=== PATIENT | female | born 1965 | race Caucasian/White ===

== ENCOUNTER → 2016-10-22 | Outpatient (CLI) | payer BC ==
--- NOTE | 2016-10-22 21:29 | REP ---
Clinical: Bronchitis . Comparison: 12/08/2014 . Technique: PA and lateral. Findings: The mediastinum and cardiac silhouette are normal. The lung velasquez are clear and without acute consolidation, effusion, or pneumothorax. The skeletal structures are intact and normal. Impression: 1. No acute cardiopulmonary process. Signed by Maximo Haas MD 10/22/2016 09:20 P
== END ==
LOC: M CLY 15:33
PROVIDERS: ATTEND Family Medicine
DX: J40 Bronchitis, not specified as acute or chronic (principal)

== ENCOUNTER 2016-11-12 09:36 | Outpatient (RCR) | payer BC | END 2016-11-18 | LOC: M PT 09:36 | PROVIDERS: ATTEND Orthopaedic Surgery | DX: Z51.89 Encounter for other specified aftercare (principal); M65.812 Other synovitis and tenosynovitis, left shoulder ==

== ENCOUNTER 2016-12-12 11:44 | Outpatient (RCR) | payer BC | END 2016-12-16 | LOC: M PT 11:44 | PROVIDERS: ATTEND Orthopaedic Surgery | DX: Z51.89 Encounter for other specified aftercare (principal); M65.812 Other synovitis and tenosynovitis, left shoulder ==

== ENCOUNTER 2017-01-08 09:45 | Outpatient (RCR) | payer BC | END 2017-01-16 | LOC: M PT 09:45 | PROVIDERS: ATTEND Orthopaedic Surgery | DX: Z51.89 Encounter for other specified aftercare (principal); M65.812 Other synovitis and tenosynovitis, left shoulder ==

== ENCOUNTER → 2017-02-12 | Outpatient (CLI) | payer BC ==
[2017-02-12 10:12] LABS: ALBUMIN 3.6 GM/DL (3.2-5.2); ALBUMIN/GLOBULIN RATIO 1.03 (1.00-1.93); ALKALINE PHOSPHATASE 85 U/L (45-117); ALT/SGPT 35 U/L (12-78); ANION GAP 8 MEQ/L (8-16); AST/SGOT 22 U/L (15-37); BILIRUBIN,TOTAL 0.4 MG/DL (0.2-1.0); BLOOD UREA NITROGEN 14 MG/DL (7-18); CALCIUM LEVEL 8.6 MG/DL (8.5-10.1); CARBON DIOXIDE LEVEL 28 MEQ/L (21-32); CHLORIDE LEVEL 107 MEQ/L (98-107); CHOLESTEROL LEVEL 203 MG/DL (<200); CREATININE FOR GFR 0.75 MG/DL (0.55-1.02); GLOMERULAR FILTRATION RATE > 60.0 (>51); GLUCOSE, FASTING 90 MG/DL (70-105); POTASSIUM SERUM 4.4 MEQ/L (3.5-5.1); SODIUM LEVEL 143 MEQ/L (136-145); TOTAL PROTEIN 7.1 GM/DL (6.4-8.2); TRIGLYCERIDES LEVEL 70 MG/DL (<150)
[2017-02-12 10:32] LABS: MEAN CORPUSCULAR HEMOGLOBIN 30.5 pg (27.0-33.0); MEAN CORPUSCULAR HGB CONC 34.1 g/dl (32.0-36.5); MEAN CORPUSCULAR VOLUME 89.4 fl (80.0-96.0); PLATELET COUNT, AUTOMATED 258 k/mm3 (150-450); RED CELL DISTRIBUTION WIDTH 13.4 % (11.5-14.5); WHITE BLOOD COUNT 5.5 K/mm3 (4.0-10.0)
[2017-02-12 10:33] LABS: BASO % 0.6 % (0.0-1.0); EOS # 0.1 K/mm3 (0.0-0.50); EOS % 1.1 % (0.0-3.0); LARGE UNSTAINED CELL # 0.1 K/mm3 (0.0-0.4); LARGE UNSTAINED CELL % 1.1 % (0.0-4.0); LYMPH # 1.3 K/mm3 (1.5-4.5); LYMPH % 24.3 % (24.0-44.0); MONO # 0.3 K/mm3 (0.0-0.8); MONO % 5.4 % (0.0-5.0); NEUTROPHILS # 3.7 K/mm3 (1.8-7.7); NEUTROPHILS % 67.5 % (36.0-66.0)
== END ==
LOC: M LAB 09:12
PROVIDERS: ATTEND Internal Medicine Infectious Disease
DX: R76.11 Nonspecific reaction to tuberculin skin test without active tuberculosis (principal); E78.00 Pure hypercholesterolemia, unspecified

== ENCOUNTER → 2017-04-17 | Outpatient (RCR) | payer BC | END | disposition home or self-care (01) | LOC: M PT 04-02 13:19 | PROVIDERS: ATTEND Physician Assistant | DX: Z51.89 Encounter for other specified aftercare (principal); M75.82 Other shoulder lesions, left shoulder ==

== ENCOUNTER → 2017-08-17 | Outpatient (REF) | payer BC | LOC: M SFHCLERA 09:22 | PROVIDERS: ATTEND Dermatology | DX: D49.2 Neoplasm of unspecified behavior of bone, soft tissue, and skin (principal) ==

== ENCOUNTER → 2018-02-09 | Outpatient (REF) | payer BC ==
[2018-02-11 14:13] LABS: HPV HYBRID CAPTURE II Negative (Negative)
== END ==
LOC: M LAB REF 18:03
DX: Z12.4 Encounter for screening for malignant neoplasm of cervix (principal)
CPT/HCPCS: G0123

== ENCOUNTER 2018-06-23 12:46 | Emergency (ER) | payer BC ==
[2018-06-23 13:23] LABS: BASO % 0.3 % (0.0-1.0); EOS # 0.1 10^3/uL (0.0-0.50); EOS % 0.7 % (0.0-3.0); HEMOGLOBIN 13.6 g/dl (12.0-15.5); IMMATURE GRANULOCYTE % 0.4 % (0-3.0); LYMPH % 29.1 % (24.0-44.0); MEAN CORPUSCULAR HGB CONC 31.6 g/dl (32.0-36.5); MEAN CORPUSCULAR VOLUME 88.5 fl (80.0-96.0); MONO # 0.4 10^3/uL (0.0-0.8); MONO % 6.3 % (0.0-5.0); NEUTROPHILS # 4.2 10^3/uL (1.8-7.7); NEUTROPHILS % 63.2 % (36.0-66.0); PLATELET COUNT, AUTOMATED 264 10^3/uL (150-450); RED BLOOD COUNT 4.86 10^6/uL (4.00-5.40); RED CELL DISTRIBUTION WIDTH 13.8 % (11.5-14.5); WHITE BLOOD COUNT 6.7 10^3/uL (4.0-10.0)
[2018-06-23 13:35] LABS: INR 0.92; PROTHROMBIN TIME 12.4 SECONDS (12.1-14.4)
[2018-06-23 13:57] LABS: ALBUMIN 3.6 GM/DL (3.2-5.2); ALKALINE PHOSPHATASE 85 U/L (45-117); ANION GAP 9 MEQ/L (8-16); AST/SGOT 23 U/L (7-37); BILIRUBIN,DIRECT < 0.1 MG/DL (0.0-0.2); BILIRUBIN,TOTAL 0.2 MG/DL (0.2-1.0); BLOOD UREA NITROGEN 13 MG/DL (7-18); CALCIUM LEVEL 8.9 MG/DL (8.5-10.1); CARBON DIOXIDE LEVEL 28 MEQ/L (21-32); CHLORIDE LEVEL 106 MEQ/L (98-107); CPK CREATINE PHOSPHOKINASE 55 U/L (26-192); CREATININE FOR GFR 0.83 MG/DL (0.55-1.30); GLOMERULAR FILTRATION RATE > 60.0 (>51); GLUCOSE, FASTING 97 MG/DL (70-100); LIPASE 208 U/L (73-393); POTASSIUM SERUM 3.9 MEQ/L (3.5-5.1); SODIUM LEVEL 143 MEQ/L (136-145); TOTAL PROTEIN 7.6 GM/DL (6.4-8.2); TROPONIN I < 0.02 NG/ML (< 0.10)
[2018-06-23 14:07] LABS: ALT/SGPT 36 U/L (12-78); CK-MB VALUE MASS < 1.0 NG/ML (<3.6); MB/CK RELATIVE INDEX 1.81 (< OR =4); NT-PRO BNP 101 PG/ML (<125)
[2018-06-23] MEDS ORDERED: ISOVUE-370 76% 100ML VIAL (Q9967) As Ordered (14:41)
[2018-06-23] MEDS: ASPIRIN 81 MG CHEW TABLET PO (14:53)
[2018-06-23] MEDS: NITROGLYCERIN 0.4 MG SUBL TABLET SL (14:54)
[2018-06-23 19:15] LABS: CK-MB VALUE MASS < 1.0 NG/ML (<3.6); CPK CREATINE PHOSPHOKINASE 51 U/L (26-192); MB/CK RELATIVE INDEX 1.96 (< OR =4); TROPONIN I < 0.02 NG/ML (< 0.10)
== END 2018-06-23 20:32 | disposition home or self-care (01) ==
LOC: M ED 12:46
DX: R07.9 Chest pain, unspecified (principal); R94.31 Abnormal electrocardiogram [ECG] [EKG]; I10 Essential (primary) hypertension; E78.5 Hyperlipidemia, unspecified; F41.9 Anxiety disorder, unspecified; Z82.49 Family history of ischemic heart disease and other diseases of the circulatory system; Z91.048 Other nonmedicinal substance allergy status; Z91.011 Allergy to milk products
CPT/HCPCS: Q9967

== ENCOUNTER → 2018-07-16 | Outpatient (CLI) | payer BC ==
[2018-07-16 10:28] LABS: ANION GAP 6 MEQ/L (8-16); BLOOD UREA NITROGEN 25 MG/DL (7-18); CALCIUM LEVEL 9.3 MG/DL (8.5-10.1); CARBON DIOXIDE LEVEL 30 MEQ/L (21-32); CHLORIDE LEVEL 106 MEQ/L (98-107); CHOLESTEROL LEVEL 216 MG/DL (<200); CHOLESTEROL RISK RATIO 4.075 (<5); CREATININE FOR GFR 0.82 MG/DL (0.55-1.30); GLOMERULAR FILTRATION RATE > 60.0 (>51); GLUCOSE, FASTING 96 MG/DL (70-100); HDL CHOLESTEROL 53 MG/DL (>40); LDL CHOLESTEROL 148 MG/DL (<100); NON-HDL-C 163 MG/DL; POTASSIUM SERUM 4.8 MEQ/L (3.5-5.1); SODIUM LEVEL 142 MEQ/L (136-145); TRIGLYCERIDES LEVEL 73 MG/DL (<150)
== END ==
LOC: M LAB 09:12
DX: I10 Essential (primary) hypertension (principal)
CPT/HCPCS: 80061

== ENCOUNTER → 2018-07-16 | Outpatient (CLI) | payer BC ==
[2018-07-16 09:48] LABS: HEMATOCRIT 43.3 % (36.0-47.0); HEMOGLOBIN 14.1 g/dl (12.0-15.5); MEAN CORPUSCULAR HEMOGLOBIN 28.6 pg (27.0-33.0); MEAN CORPUSCULAR HGB CONC 32.6 g/dl (32.0-36.5); MEAN CORPUSCULAR VOLUME 87.8 fl (80.0-96.0); PLATELET COUNT, AUTOMATED 275 10^3/uL (150-450); RED BLOOD COUNT 4.93 10^6/uL (4.00-5.40); RED CELL DISTRIBUTION WIDTH 13.4 % (11.5-14.5); WHITE BLOOD COUNT 5.3 10^3/uL (4.0-10.0)
[2018-07-16 10:25] LABS: ALBUMIN/GLOBULIN RATIO 1.11 (1.00-1.93); ALKALINE PHOSPHATASE 83 U/L (45-117); ALT/SGPT 34 U/L (12-78); ANION GAP 8 MEQ/L (8-16); AST/SGOT 19 U/L (7-37); BILIRUBIN,TOTAL 0.3 MG/DL (0.2-1.0); BLOOD UREA NITROGEN 23 MG/DL (7-18); CALCIUM LEVEL 9.5 MG/DL (8.5-10.1); CARBON DIOXIDE LEVEL 29 MEQ/L (21-32); CHLORIDE LEVEL 106 MEQ/L (98-107); CREATININE FOR GFR 0.83 MG/DL (0.55-1.30); GLOMERULAR FILTRATION RATE > 60.0 (>51); GLUCOSE, FASTING 91 MG/DL (70-100); POTASSIUM SERUM 4.8 MEQ/L (3.5-5.1); SODIUM LEVEL 143 MEQ/L (136-145); TOTAL PROTEIN 7.6 GM/DL (6.4-8.2)
== END ==
LOC: M LAB 09:04
DX: R19.5 Other fecal abnormalities (principal); I10 Essential (primary) hypertension
CPT/HCPCS: 80053

== ENCOUNTER → 2019-12-01 | Outpatient (REF) | payer BC | LOC: M SFHCCLAY 16:04 | PROVIDERS: ATTEND Nurse Practitioner Family | DX: J02.9 Acute pharyngitis, unspecified (principal) ==

== ENCOUNTER → 2019-12-09 | Outpatient (CLI) | payer BC ==
--- NOTE | 2019-12-09 15:50 | REP ---
Clinical: Left lower extremity numbness . Technique: AP, lateral, bilateral oblique, and coned-down views. Findings: Alignment and lordosis is maintained. There is no evidence for acute fracture / compression injury or subluxation. Endplate sclerosis with disc space narrowing and anterior osteophyte formation at L1-2 noted along with mild endplate sclerosis and disc space narrowing at L5-S1. Impression: Mild degenerative changes at L1-2 and L5-S1. Electronically Signed by Maximo Haas MD 12/09/2019 03:42 P
--- NOTE | 2019-12-09 15:51 | REP ---
Clinical: Left hip pain. Left lower extremity numbness. Technique: Neutral and frog lateral views of the left hip. Findings: Osseous structures, joint spaces, and surrounding soft tissues are essentially normal for age. No overt osteoarthritic findings are appreciated. Surrounding soft tissues are unremarkable. Impression: Normal left hip radiographs. Electronically Signed by Maximo Haas MD 12/09/2019 03:43 P
== END ==
LOC: M RAD 14:46
PROVIDERS: ATTEND Nurse Practitioner Family
DX: M51.36 Other intervertebral disc degeneration, lumbar region (principal); M51.37 Other intervertebral disc degeneration, lumbosacral region; R20.0 Anesthesia of skin

== ENCOUNTER → 2019-12-12 | Outpatient (CLI) | payer BC ==
[2019-12-12 10:32] LABS: ALBUMIN 3.8 GM/DL (3.2-5.2); ALT/SGPT 50 U/L (12-78); BILIRUBIN,TOTAL 0.3 MG/DL (0.2-1.0); BLOOD UREA NITROGEN 13 MG/DL (7-18); CALCIUM LEVEL 9.2 MG/DL (8.5-10.1); CARBON DIOXIDE LEVEL 30 MEQ/L (21-32); CHLORIDE LEVEL 107 MEQ/L (98-107); CHOLESTEROL LEVEL 239 MG/DL (<200); CHOLESTEROL RISK RATIO 5.195 (<5); CREATININE FOR GFR 0.74 MG/DL (0.55-1.30); GLOMERULAR FILTRATION RATE > 60.0 (>51); GLUCOSE, FASTING 96 MG/DL (70-100); HDL CHOLESTEROL 46 MG/DL (>40); LDL CHOLESTEROL 149 MG/DL (<100); NON-HDL-C 193 MG/DL; POTASSIUM SERUM 4.4 MEQ/L (3.5-5.1); SODIUM LEVEL 141 MEQ/L (136-145); TOTAL PROTEIN 7.2 GM/DL (6.4-8.2); TRIGLYCERIDES LEVEL 221 MG/DL (<150); VITAMIN B12 LEVEL 494 PG/ML (247-911)
[2019-12-16 14:09] LABS: VITAMIN B1 LEVEL WHOLE BLOOD 154.6 nmol/L (66.5-200.0)
== END ==
LOC: M LAB 08:35
PROVIDERS: ATTEND Nurse Practitioner Family
DX: R20.0 Anesthesia of skin (principal)

== ENCOUNTER → 2020-01-17 | Outpatient (REF) | payer BC | LOC: M LAB REF 17:17 | PROVIDERS: ATTEND Dermatology | DX: D23.5 Other benign neoplasm of skin of trunk (principal) ==

== ENCOUNTER → 2020-05-07 | Outpatient (CLI) | payer SELFPAY | LOC: M LABSMTC 09:35 | PROVIDERS: ATTEND Pediatrics | DX: Z20.828 Contact with and (suspected) exposure to other viral communicable diseases (principal); Z11.59 Encounter for screening for other viral diseases ==

== ENCOUNTER → 2020-05-15 | Outpatient (REF) | payer BC ==
[2020-06-11 09:14] LABS: HEMATOCRIT 44.1 % (36.0-47.0); HEMOGLOBIN 13.8 g/dl (12.0-15.5); MEAN CORPUSCULAR HEMOGLOBIN 28.1 pg (27.0-33.0); MEAN CORPUSCULAR HGB CONC 31.3 g/dl (32.0-36.5); MEAN CORPUSCULAR VOLUME 89.8 fl (80.0-96.0); PLATELET COUNT, AUTOMATED 304 10^3/uL (150-450); RED BLOOD COUNT 4.91 10^6/uL (4.00-5.40); WHITE BLOOD COUNT 6.8 10^3/uL (4.0-10.0)
[2020-06-21 07:01] LABS: BLOOD UREA NITROGEN 15 MG/DL (7-18); CALCIUM LEVEL 9.2 MG/DL (8.5-10.1); CARBON DIOXIDE LEVEL 32 MEQ/L (21-32); CHLORIDE LEVEL 105 MEQ/L (98-107); GLOMERULAR FILTRATION RATE > 60.0 (>51); GLUCOSE, FASTING 92 MG/DL (70-100); SODIUM LEVEL 143 MEQ/L (136-145)
== END ==
LOC: M SFHCCLAY 08:01
PROVIDERS: ATTEND Family Medicine
DX: K52.9 Noninfective gastroenteritis and colitis, unspecified (principal)

== ENCOUNTER → 2020-08-09 | Outpatient (CLI) | payer BC | LOC: M LABSMTC 11:39 | PROVIDERS: ATTEND Pediatrics | DX: Z11.59 Encounter for screening for other viral diseases (principal) ==

== ENCOUNTER → 2020-10-29 | Outpatient (CLI) | payer BC ==
[2020-10-29 12:14] LABS: HEMOGLOBIN A1c 5.4 %
== END ==
LOC: M LAB 09:11
DX: R73.09 Other abnormal glucose (principal)

== ENCOUNTER → 2020-11-08 | Outpatient (REF) | LOC: M EMP 09:03 | PROVIDERS: ATTEND Family Medicine | DX: Z20.822 Contact with and (suspected) exposure to COVID-19 (principal) ==

== ENCOUNTER → 2021-01-16 | Outpatient (CLI) | payer BC ==
[~2021-01-16] MED LIST: LISI10TA15; TOPI25TA10; VITA1CHW11 PO
== END ==
LOC: M LABSMTC 09:37
PROVIDERS: ATTEND Anesthesiology
DX: Z01.818 Encounter for other preprocedural examination (principal); Z20.822 Contact with and (suspected) exposure to COVID-19

== ENCOUNTER → 2021-02-08 | Outpatient (CLI) | payer BC ==
[2021-02-08 11:29] LABS: ALBUMIN 3.9 GM/DL (3.2-5.2); ALT/SGPT 56 U/L (12-78); BILIRUBIN,TOTAL 0.3 MG/DL (0.2-1.0); BLOOD UREA NITROGEN 20 MG/DL (7-18); CALCIUM LEVEL 9.4 MG/DL (8.5-10.1); CARBON DIOXIDE LEVEL 32 MEQ/L (21-32); CHLORIDE LEVEL 105 MEQ/L (98-107); GLOMERULAR FILTRATION RATE > 60.0 (>51); GLUCOSE, FASTING 96 MG/DL (70-100); SODIUM LEVEL 141 MEQ/L (136-145); TOTAL PROTEIN 7.5 GM/DL (6.4-8.2)
== END ==
LOC: M LAB 10:21
PROVIDERS: ATTEND Internal Medicine Infectious Disease
DX: R76.11 Nonspecific reaction to tuberculin skin test without active tuberculosis (principal)

== ENCOUNTER 2021-02-18 07:40 | Day surgery (SDC) | payer BC ==
[~2021-02-18] VITALS: Ht 167.6 cm; Wt 107.5 kg
[~2021-02-18 07:40] MED LIST changes: +NS 1,000 ML IV ONE
[2021-02-18] MEDS ORDERED: LIDOCAINE 2% 100MG/5ML SDV (FOR ANES.) As Ordered ONE (07:56)
[2021-02-18] MEDS ORDERED: propofoL 500 MG/50 ML VIAL As Ordered ONE ×3 (07:56→09:03)
[2021-02-18] MEDS ORDERED: ePHEDrine SULFATE 25 MG/5 ML(5MG/ML) SYRINGE As Ordered ONE (08:45)
[2021-02-18] MEDS ORDERED: PHENYLephrine 500MCG 5ML (100MCG/ML) SYRINGE As Ordered ONE (09:01)
--- NOTE | 2021-02-18 09:17 | ROOR ---
Patient Name: Stacia Beatty Procedure Date: 02/18/2021 8:32 AM Date of : 1965 Age: 55 Room: [facility] Gender: Female Note Status: Finalized Procedure: Total Colonoscopy to Cecum + Cold Snare Polypectomy + Hemoclips Indications: Screening for colorectal malignant neoplasm Providers: Regulo Casillas MD Referring MD: Wesley Leal MD Requesting Provider: Medicines: Monitored Anesthesia Care Complications: No immediate complications. Procedure: Pre-Anesthesia Assessment: - The heart rate, respiratory rate, oxygen saturations, blood pressure, adequacy of pulmonary ventilation, and response to care were monitored throughout the procedure. The Colonoscope was introduced through the anus and advanced to the terminal ileum, with identification of the appendiceal orifice and IC valve. The colonoscopy was performed without difficulty. The patient tolerated the procedure well. The quality of the bowel preparation was excellent. Findings: The perianal and digital rectal examinations were normal. Non-bleeding internal hemorrhoids were found during retroflexion. The hemorrhoids were small and Grade I (internal hemorrhoids that do not prolapse). The terminal ileum appeared normal. A medium polyp was found at 25 cm proximal to the anus. The polyp was carpet-like. The polyp was removed with a cold snare. Resection and retrieval were complete. To prevent bleeding after the polypectomy, three hemostatic clips were successfully placed (MR conditional). There was no bleeding at the end of the procedure. Two carpet-like polyps were found in the cecum. The polyps were medium in size. These polyps were removed with a cold snare. Resection and retrieval were complete. To prevent bleeding after the polypectomy, four hemostatic clips were successfully placed (MR conditional). There was no bleeding at the end of the procedure. The exam was otherwise without abnormality on direct and retroflexion views. Impression: - Non-bleeding internal hemorrhoids. - The examined portion of the ileum was normal. - One medium polyp at 25 cm proximal to the anus, removed with a cold snare. Resected and retrieved. Clips (MR conditional) were placed. - Two medium polyps in the cecum, removed with a cold snare. Resected and retrieved. Clips (MR conditional) were placed. - The examination was otherwise normal on direct and retroflexion views. - The exam was otherwise normal to the cecum. Recommendation: - Patient has a contact number available for emergencies. The signs and symptoms of potential delayed complications were discussed with the patient. Return to normal activities tomorrow. Written discharge instructions were provided to the patient. - High fiber diet. - Discharge patient to home. - Continue present medications. - Await pathology results. - Telephone GI clinic for pathology results in 1 week. - Repeat colonoscopy in 3 years for surveillance based on pathology results. - Return to referring physician. - The findings and recommendations were discussed with the patient. Procedure Code(s): --- Professional --- 52359, Colonoscopy, flexible; with removal of tumor(s), polyp(s), or other lesion(s) by snare technique Diagnosis Code(s): --- Professional --- K63.5, Polyp of colon Z12.11, Encounter for screening for malignant neoplasm of colon K64.0, First degree hemorrhoids CPT copyright 2019 [employer]. All rights reserved. The codes documented in this report are preliminary and upon auto battery builder review may be revised to meet current compliance requirements. Regulo Casillas MD Regulo Casillas MD 02/18/2021 9:17:24 AM Electronically signed by Regulo Casillas MD Number of Addenda: 0 Note Initiated On: 02/18/2021 8:32 AM Estimated Blood Loss: Estimated blood loss: none.
[2021-02-18 09:30] VITALS: BP 123/74
== END 2021-02-18 09:39 | disposition home or self-care (01) ==
LOC: M OPP 07:40
PROVIDERS: ATTEND Internal Medicine Gastroenterology
DX: Z12.11 Encounter for screening for malignant neoplasm of colon (principal); K63.5 Polyp of colon; K64.0 First degree hemorrhoids; I71.1 Thoracic aortic aneurysm, ruptured; I10 Essential (primary) hypertension; Z22.7 Latent tuberculosis; Z79.899 Other long term (current) drug therapy; Z91.011 Allergy to milk products; Z91.048 Other nonmedicinal substance allergy status
CPT/HCPCS: 45385; 88305; J2370

== ENCOUNTER → 2021-07-02 | Outpatient (REF) ==
[~2021-07-02] MED LIST changes: -NS 1,000 ML IV ONE
== END ==
LOC: M EMP 08:56
PROVIDERS: ATTEND Family Medicine
DX: Z11.52 Encounter for screening for COVID-19 (principal)

== ENCOUNTER 2021-08-17 09:02 | Emergency (ER) | payer BC ==
[~2021-08-17] VITALS: Ht 170.2 cm; Wt 110.9 kg
--- OUTSIDE RECORDS SUMMARY | 2021-08-17 09:08 | CCD ---
Author Author [facility] Organization [facility] Address Unknown Phone Unavailable Care Team Providers Care Dining Room Maid Name Role Phone Elissa Casillas MD Unavailable Unavailable Elissa Casillas MD Unavailable Unavailable Elissa Casillas MD Unavailable Unavailable Elissa Casillas MD Unavailable Unavailable Elissa Casillas MD Unavailable Unavailable Elissa Casillas MD Unavailable Unavailable Elissa Casillas MD Unavailable Unavailable Elissa Casillas MD Unavailable Unavailable Elissa Casillas MD Unavailable Unavailable Elissa Casillas MD Unavailable Unavailable Elissa Casillas MD Unavailable Unavailable Elissa Casillas MD Unavailable Unavailable Elissa Casillas MD Unavailable Unavailable Elissa Casillas MD Unavailable Unavailable Elissa Casillas MD Unavailable Unavailable Elissa Casillas MD Unavailable Unavailable SonjaElissa morales MD Unavailable Unavailable Sonja, S Regulo CARIAS Unavailable Unavailable Sonja, S Regulo CARIAS Unavailable Unavailable SonjaElissa morales MD Unavailable Unavailable SonjaElissa morales MD Unavailable Unavailable Sonja S Regulo CARIAS Unavailable Unavailable Sonja, S Reuglo CARIAS Unavailable Unavailable Sonja S Regulo CARIAS Unavailable Unavailable Sonja S Regulo CARIAS Unavailable Unavailable Sonja S Regulo CARIAS Unavailable Unavailable Sonja S Regulo CARIAS Unavailable Unavailable SonjaElissa MD Unavailable Unavailable Sonja S Regulo CARIAS Unavailable Unavailable Sonja, S Regulo CARIAS Unavailable Unavailable Sonja S Regulo CARIAS Unavailable Unavailable Sonja, S Regulo CARIAS Unavailable Unavailable SonjaElissa morales MD Unavailable Unavailable Elissa Casillas MD Unavailable Unavailable SonjaElissa morales MD Unavailable Unavailable SonjaElissa morales MD Unavailable Unavailable Elissa Casillas MD Unavailable Unavailable Elissa Casillas MD Unavailable Unavailable Elissa Casillas MD Unavailable Unavailable Elissa Casillas MD Unavailable Unavailable Elissa Casillas MD Unavailable Unavailable Elissa Casillas MD Unavailable Unavailable Elissa Casillas MD Unavailable Unavailable Elissa Casillas MD Unavailable Unavailable Elissa Casillas MD Unavailable Unavailable Elissa Casillas MD Unavailable Unavailable Elissa Casillas MD Unavailable Unavailable Elissa Casillas MD Unavailable Unavailable Elissa Casillas MD Unavailable Unavailable Elissa Casillas MD Unavailable Unavailable Amber MEYERW DPM Unavailable Unavailable Amber MEYER DPM Unavailable Unavailable BETSY R FRANSISCO DPM Unavailable Unavailable BETSY R FRANSISCO DPM Unavailable Unavailable BETSY R FRANSISCO DPM Unavailable Unavailable MAJIVONNE R FRANSISCO DPM Unavailable Unavailable MAJIVONNE, R FRANSISCO DPM Unavailable Unavailable MAJIVONNE, R FRANSISCO DPM Unavailable Unavailable MAJIVONNE, R FRANSISCO DPM Unavailable Unavailable BETSY, R FRANSISCO DPM Unavailable Unavailable BETSY, R FRANSISCO DPM Unavailable Unavailable BETSY, R FRANSISCO DPM Unavailable Unavailable MAJIVONNE, R FRANSISCO DPM Unavailable Unavailable BETSY, R FRANSISCO DPM Unavailable Unavailable MAJIVONNE, R FRANSISCO DPM Unavailable Unavailable BETSY, R FRANSISCO DPM Unavailable Unavailable BETSY, R FRANSISCO DPM Unavailable Unavailable BETSY R FRANSISCO DPM Unavailable Unavailable MAJAK, R FRANSISCO DPM Unavailable Unavailable MAJAK, R FRANSISCO DPM Unavailable Unavailable MAJAK, R FRANSISCO DPM Unavailable Unavailable MAJAK, R FRANSISCO DPM Unavailable Unavailable MAJAK, R FRANSISCO DPM Unavailable Unavailable MAJAK, R FRANSISCO DPM Unavailable Unavailable MAJAK, R FRANSISCO DPM Unavailable Unavailable MAJAK, R FRANSISCO DPM Unavailable Unavailable MAJAK, R FRANSISCO DPM Unavailable Unavailable MAJAK, R FRANSISCO DPM Unavailable Unavailable MAJAK, R FRANSISCO DPM Unavailable Unavailable MAJAK, R FRANSISCO DPM Unavailable Unavailable MAJAK, R FRANSISCO DPM Unavailable Unavailable Re-disclosure Warning The records that you are about to access may contain information from federally-assisted alcohol or drug abuse programs. If such information is present, then the following federally mandated warning applies: This information has been disclosed to you from records protected by federal confidentiality rules (42 CFR part 2). The federal rules prohibit you from making any further disclosure of this information unless further disclosure is expressly permitted by the written consent of the person to whom it pertains or as otherwise permitted by 42 CFR part 2. A general authorization for the release of medical or other information is NOT sufficient for this purpose. The Federal rules restrict any use of the information to criminally investigate or prosecute any alcohol or drug abuse patient.The records that you are about to access may contain highly sensitive health information, the redisclosure of which is protected by Article 27-F of the [facility] Public Health law. If you continue you may have access to information: Regarding HIV / AIDS; Provided by facilities licensed or operated by the [facility] Office of Mental Health; or Provided by the [facility] Office for People With Developmental Disabilities. If such information is present, then the following [facility] mandated warning applies: This information has been disclosed to you from confidential records which are protected by state law. State law prohibits you from making any further disclosure of this information without the specific written consent of the person to whom it pertains, or as otherwise permitted by law. Any unauthorized further disclosure in violation of state law may result in a fine or fci sentence or both. A general authorization for the release of medical or other information is NOT sufficient authorization for further disc losure. Family History Family Member Name Family Member Gender Family Member Status Date o f Status Description Data Source(s) Unknown Unknown Problem MEDENT ([facility]) Unknown Female Problem MEDENT ([facility]) Encounters Encounter Providers Location Date Indications Data Source(s ) Unknown [address] [facility] [address] 02/14/2021 12:00:00 AM EDT eCW1 ([facility]) Outpatient Attender: FRANSISCO MEYER [facility] Office 01/18 03:15:00 PM EDT MEDENT ([facility] Unknown [address] [facility] [address] 02/12/2021 12:00:00 AM EDT eCW1 ([facility]) [place] [address] [facility] [place] [address] 02/12/2021 12:00:00 AM EDT eCW1 ([facility]) Outpatient Attender: FRANSISCO MEYER [facility] Office 05/2021 03:30:00 PM EDT MEDENT ([facility] Outpatient [address] [facility] [address] 01/18/2021 12:00:00 AM EDT eCW1 ([facility]) Unknown [address] [facility] [place] [address] 01/18/2021 12:00:00 AM EDT eCW1 ([facility]) Unknown [address] [facility] [address] 01/18/2021 12:00:00 AM EDT eCW1 ([facility]) TeleMedicine Phone E/M by Phys 11-20 Min [address] [place] [address] 10/23/2020 12:00:00 AM EST eCW1 ([facility]) Unknown [address] [facility] [place] [address] 10/23/2020 12:00:00 AM EST eCW1 ([facility]) Unknown [address] [facility] [address] 10/22/2020 12:00:00 AM EST eCW1 ([facility]) Outpatient Attender: Regulo Casillas MD Main Office 08/28/2020 09:15:00 AM EST MEDENT ([facility]) Immunizations Vaccine Date Status Description Data Source(s) COVID-19 VACCINE Moderna 08/12/2021 12:00:00 AM EDT completed [facility] Vaccine Series Complete: YESThis Data wa s Submitted to [facility]. COVID-19 VACCINE Moderna 11/13/2020 12:00:00 AM EST completed [facility] Vaccine Series Complete: YESThis Data wa s Submitted to [facility]. COVID-19 VACCINE Moderna 10/16/2020 12:00:00 AM EST completed [facility] Vaccine Series Complete: NOThis Data was Submitted to [facility]. Medications Medication Brand Name Start Date Product Form Dose Route Admi nistrative Instructions Pharmacy Instructions Status Indications Reaction Description Data Source(s) Amoxicillin 875 MG Oral Tablet Amoxicillin 875 MG 01/18/2021 12:00: 00 AM EDT 1.0 {tablet} active Amoxicillin 875 MG eCW1 ([facility]) Amoxicillin 875 MG Oral Tablet Amoxicillin 875 MG 01/18/2021 12:00: 00 AM EDT 1.0 {tablet} active Amoxicillin 875 MG eCW1 ([facility]) 875 mg 01/18/2021 12:00:00 AM EDT tablet 20 TAKE ONE TABLET BY MOUTH TWICE A DAY FOR 10 DAYS TAKE ONE TABLET BY MOUTH TWICE A DAY FOR 10 DAYS SOLD: 01/19/2021 [email or web address] Amoxicillin 875 MG Oral Tablet Amoxicillin 875 MG 01/18/2021 12:00: 00 AM EDT 1.0 {tablet} active Amoxicillin 875 MG eCW1 ([facility]) Amoxicillin 875 MG Oral Tablet Amoxicillin 875 MG 01/18/2021 12:00: 00 AM EDT 1.0 {tablet} active Amoxicillin 875 MG eCW1 ([facility]) 25 mg 01/18/2021 12:00:00 AM EDT tablet 180 TAKE ONE TABLET BY MOUTH TWICE A DAY TAKE ONE TABLET BY MOUTH TWICE A DAY SOLD: 01/19/2021 [facility] 25 mg 01/18/2021 12:00:00 AM EDT tablet 180 TAKE ONE TABLET BY MOUTH TWICE A DAY TAKE ONE TABLET BY MOUTH TWICE A DAY SOLD: 04/19/2021 [facility] Amoxicillin 875 MG Oral Tablet Amoxicillin 875 MG 01/18/2021 12:00: 00 AM EDT 1.0 {tablet} active Amoxicillin 875 MG eCW1 ([facility]) Amoxicillin 875 MG Oral Tablet Amoxicillin 875 MG 01/18/2021 12:00: 00 AM EDT 1.0 {tablet} active Amoxicillin 875 MG eCW1 ([facility]) 17.5-3.13-1.6 gram 01/14/2021 12:00:00 AM EDT recon soln 354 USE DIRECTED USE DIRECTED SOLD: 01/19/2021 [facility] Suprep Bowel Prep Kit Suprep Bowel Prep Kit 08/29/2020 12:00:00 AM EST active MEDENT ([facility]) 10-12.5 mg 08/08/2020 12:00:00 AM EDT tablet 180 TAKE TWO TABLETS BY MOUTH EVERY DAY TAKE TWO TABLETS BY MOUTH EVERY DAY SOLD: 08/12/2020 [facility] 10-12.5 mg 08/08/2020 12:00:00 AM EDT tablet 180 TAKE TWO TABLETS BY MOUTH EVERY DAY TAKE TWO TABLETS BY MOUTH EVERY DAY SOLD: 11/12/2020 [facility] Hydrochlorothiazide 12.5 MG / Lisinopril 10 MG Oral Ta blet 10-12.5 mg LISINOPRIL/HYDROCHLOROTHIAZIDE 08/08/2020 12:00:00 AM EDT tablet 180 TAKE TWO TABLETS BY MOUTH EVERY DAY TAKE TWO TABLETS BY MOUTH EVERY DAY SOLD: 04/19/2021 [facility] Insurance Providers Payer name Policy type / Coverage type Policy ID Covered constitution party ID Covered constitution party's relationship to gill Policy Gill Plan Information [employer] BCBS [id number] [facility] VYS [id number] EX[employer] [id number] Self [id number] BCBS OF [facility] 306/806 [id number] [facility] Commercial [id number] Self [id number] BS [employer] Commercial [id number] Self BS [employer] Commercial [id number] Self [id number] Blue Cross Blue Shield P [id number] SELF [id number] [employer] B [id number] S VYS [id number] BC[place] [id number] S VYS [place] [id number] S VYS [id number] ANSI-Commercial [id number] ANSI-Commercial [id number] ANSI-Commercial [id number] ANSI-Commercial [id number] ANSI-Commercial [id number] ANSI-Commercial [id number] ANSI-Commercial [id number] ANSI-Commercial [id number] ANSI-Commercial [id number] [employer] BCBS Health Maintenance Organization (HMO) [id number] Self [id number] [place] BC [id number] S VYS [id number] [place] PHY [id number] SP [id number] MVP GOLD [id number] SP [id number] OTHER WORKERS COMPENSATION UNAVAILABLE UNAVAILABLE BCBS [place] WATN PPO 302/307 [id number] SP [id number] [facility] P UNAVAILABLE [id number] S UNAVAILABLE BCBS [place] WATN PPO 302/307 [id number] SP [id number] [place]BS [place] WATN PPO 302/307 [id number] SP [id number] BCBS [place] WATN 306/806 [id number] SP [id number] SELF PAY ONLY [id number] SP [id number] BC[employer] [place] WATN 306/806 [id number] SP [id number] BCBS [place] WATN 306/806 [id number] SP [id number] BC[place] WATN 306/806 [id number] SP [id number] Problems, Conditions, and Diagnoses Code Display Name Description Problem Type Effective Dates Data Source(s) L84 Callosity Callosity Problem 02/08/2021 12:00:00 AM PERI HOPPER ([facility] B35.1 Onychomycosis Onychomycosis Problem 02/08/2021 12:00:00 AM EDT MEDENT ([facility] M21.6x9 Pronation Pronation Problem 02/08/2021 12:00:00 AM ED T MEDENT ([facility] R61 [id number] Night sweats Problem 10/23/2020 12:00:00 AM EST eCW1 ([facility]) I71.2 [id number] Thoracic aneurysm without mention of rupt ure Problem 10/23/2020 12:00:00 AM EST eCW1 ([facility]) [id number] Screening for malignant neoplasm of colo n Screening for malignant neoplasm of colon Problem 08/28/2020 12:00:00 AM EST MEDENT ([facility]) I71.2 [id number] Thoracic aortic aneurysm, without rupture Problem 08/21/2020 12:00:00 AM EST eCW1 ([facility]) Surgeries/Procedures Procedure Description Date Indications Data Source(s) COLSC FLX PROX SPLENIC FLXR RMVL LES SNARE TQ 02/19/20 12:00:00 AM EDT MEDENT ([facility]) Results ID Date Data Source [id number] 07/02/2021 08:57:00 AM EDT [facility] Name Value Range Interpretation Code Description Data Sonja rce(s) Supporting Document(s) SARS coronavirus 2 RNA [Presence] in Res piratory specimen by JCARLOS with probe detection NEGATIVE [facility] This lab was ordered by [facility] a nd reported by [facility]. ID Date Data Source [id number] 02/18/2021 09:10:00 AM EDT MEDENT ([facility]) Name Value Range Interpretation Code Description Data Sonja rce(s) Supporting Document(s) Surgical pathology study Laboratory test result MEDENT ([facility]) FINAL DIAGNOSIS A-Colon, cecal polyp, polypectomy: Tubular adenoma. Separate fragments of hyperplastic polyp. B--Colon, polyp @ 25cm, polypectomy: Hyperplastic polyp. 02/19/2021 - 1129 CLINICAL DIAGNOSIS Screening 02/18/2021 - 1449 GROSS DIAGNOSIS A - Received in formalin labeled "cecal polyp" and consists of fragments of tissue, 0.4 x 0.3 x 0.1 cm in aggregate. All in one. B - Received in formalin labeled "polyp @ 25 cm" and consists of fragments of tissue, 0.4 x 0.3 x 0.2 cm. All in one. -OA 02/18/2021 - 1449 Signed MARTÍN SNIDER MD 02/19/2021 1129 ID Date Data Source [id number] 02/13/2021 11:50:00 AM EDT [facility] Name Value Range Interpretation Code Description Data Sonja rce(s) Supporting Document(s) SARS-CoV-2 (COVID-19) RNA [Presence] in Respiratory specimen by JCARLOS with probe detection Not Detected [facility] This lab was ordered by [facility] and reported by [facility] ID Date Data Source [id number] 01/16/2021 11:00:00 AM EDT [facility] Name Value Range Interpretation Code Description Data Sonja rce(s) Supporting Document(s) SARS-CoV-2 (COVID-19) RNA [Presence] in Respiratory specimen by JCARLOS with probe detection Not Detected [facility] This lab was ordered by [facility] and reported by [facility]. ID Date Data Source [id number] 11/08/2020 09:04:00 AM EST [facility] Name Value Range Interpretation Code Description Data Sonja rce(s) Supporting Document(s) SARS coronavirus 2 RNA Not Detected [facility] This lab was ordered by [facility] and reported by [facility]. ID Date Data Source [id number] 08/09/2020 12:00:00 AM EDT [facility] Name Value Range Interpretation Code Description Data Sonja rce(s) Supporting Document(s) 2019-nCoV RNA XXX JCARLOS+probe-Imp [facility] This lab was ordered by [facility] and reported by [facility] ID Date Data Source [id number] 08/08/2020 12:00:00 AM EDT [facility] Name Value Range Interpretation Code Description Data Sonaj rce(s) Supporting Document(s) SARS coronavirus 2 Ag [facility] This lab was ordered by [facility] and reported by [facility]. Procedure Social History Code Duration Value Status Description Data Source(s ) Smoking 01/18/2021 12:00:00 AM EDT Never Smoker completed Never S moker eCW1 ([facility]) Smoking 01/18/2021 12:00:00 AM EDT Never Smoker completed Never S moker eCW1 ([facility]) Smoking 01/18/2021 12:00:00 AM EDT Never Smoker completed Never S moker eCW1 ([facility]) Smoking 01/18/2021 12:00:00 AM EDT Never Smoker completed Never S moker eCW1 ([facility]) Smoking 01/18/2021 12:00:00 AM EDT Never Smoker completed Never S moker eCW1 ([facility]) Smoking 01/18/2021 12:00:00 AM EDT Never Smoker completed Never S moker eCW1 ([facility]) Smoking 10/23/2020 12:00:00 AM EST Never Smoker completed Never S moker eCW1 ([facility]) Smoking 10/23/2020 12:00:00 AM EST Never Smoker completed Never S moker eCW1 ([facility]) Smoking 10/23/2020 12:00:00 AM EST Never Smoker completed Never S moker eCW1 ([facility]) Vital Signs ID Date Data Source UNK Name Value Range Interpretation Code Description Data Source(s) Body height 67 [in_i] 67 [in_i] MEDENT ([facility] 5'7" Body weight 243.00 [lb_av] 243.00 [lb_av] MEDEN T ([facility] Systolic blood pressure 110 mm[Hg] 110 mm[Hg] M EDENT ([facility] Diastolic blood pressure 78 mm[Hg] 78 mm[Hg] MEDENT ([facility] Heart rate 81 /min 81 /min MEDENT ([facility] Body mass index (BMI) [Ratio] 38.1 kg/m2 38.1 k g/m2 MED[facility] ([facility] Diastolic blood pressure 72 mm[Hg] 72 mm[Hg] eCW1 ([facility]) Body weight 243.12 [lb_av] 243.12 [lb_av] eCW1 ([facility]) Body height 67.5 [in_i] 67.5 [in_i] eCW1 ([facility]) Body mass index (BMI) [Ratio] 37.51 kg/m2 37.51 kg/m2 eCW1 ([facility]) Heart rate 85 /min 85 /min eCW1 ([facility]) Respiratory rate 16 /min 16 /min eCW1 ([facility]) Body temperature 98.1 [degF] 98.1 [degF] eCW1 ( [facility]) Systolic blood pressure 102 mm[Hg] 102 mm[Hg] e CW1 ([facility]) Body height 65 [in_i] 65 [in_i] [facility] 5'5" Heart rate 72 /min 72 /min [facility] ([facility]) Body weight 240.00 [lb_av] 240.00 [lb_av] MEDEN T ([facility]) Body mass index (BMI) [Ratio] 39.9 kg/m2 39.9 k g/m2 MEDENT ([facility]) Body weight 108.864 kg 108.864 kg MEDENT ([facility]) Body temperature 97.8 [degF] 97.8 [degF] MEDENT ([facility]) Systolic blood pressure 134 mm[Hg] 134 mm[Hg] M EDENT ([facility]) Diastolic blood pressure 85 mm[Hg] 85 mm[Hg] MEDENT ([facility]) Patient Treatment Plan of Care Planned Activity Planned Date Details Description Data Source (s) Amoxicillin 875 MG Oral Tablet 01/18/2021 12:00:00 AM EDT eCW1 ([facility]) Amoxicillin 875 MG Oral Tablet 01/18/2021 12:00:00 AM EDT eCW1 ([facility]) Amoxicillin 875 MG Oral Tablet 01/18/2021 12:00:00 AM EDT eCW1 ([facility]) Amoxicillin 875 MG Oral Tablet 01/18/2021 12:00:00 AM EDT eCW1 ([facility]) Amoxicillin 875 MG Oral Tablet 01/18/2021 12:00:00 AM EDT eCW1 ([facility]) Amoxicillin 875 MG Oral Tablet 01/18/2021 12:00:00 AM EDT eCW1 ([facility])
--- OUTSIDE RECORDS SUMMARY | 2021-08-17 11:23 | CCD ---
Author Author [facility] Organization [facility] Address Unknown Phone Unavailable Care Team Providers Care Card Checker Name Role Phone Elissa Casillas MD Unavailable [...] is protected by Article 27-F of the [facility] Public Health law. If you continue you may have access to information: Regarding HIV / AIDS; Provided by facilities licensed or operated by the [facility] Office of Mental Health; or Provided by the [facility] Office for People With Developmental Disabilities. If such information is present, then the following [facility] mandated warning applies: This information has [...] law may result in a fine or senior living sentence or both. A general authorization for the release of medical or other information is NOT sufficient authorization for further disc losure. Family History Family Member Name Family Member Gender Family Member Status Date o f Status Description Data Source(s) Unknown Unknown Problem MEDENT ([facility]) Unknown Female Problem MEDENT ([facility]) Encounters Encounter Providers Location Date Indications Data Source(s ) Unknown [address] [facility] [address] 02/14/2021 12:00:00 AM EDT eCW1 ([facility]) Outpatient Attender: FRANSISCO MEYER [facility] Office 01/18 03:15:00 PM EDT MEDENT ([facility] Unknown [address] [facility] [address] 02/12/2021 12:00:00 AM EDT eCW1 ([facility]) Unknown [address] [facility] [place] [address] 02/12/2021 12:00:00 AM EDT eCW1 ([facility]) Outpatient Attender: FRANSISCO MEYER [facility] Office 05/2021 03:30:00 PM EDT MEDENT ([facility] Outpatient [address] [facility] [address] 01/18/2021 12:00:00 AM EDT eCW1 ([facility]) Unknown [address] [facility] [place] [address] 01/18/2021 12:00:00 AM EDT eCW1 ([facility]) Unknown [address] [facility] [address] 01/18/2021 12:00:00 AM EDT eCW1 ([facility]) TeleMedicine Phone E/M by Phys 11-20 Min [address] [place] [address] 10/23/2020 12:00:00 AM EST eCW1 ([facility]) Unknown [address] [facility] [place] [address] 10/23/2020 12:00:00 AM EST eCW1 ([facility]) Unknown [address] [facility] [place] [address] 10/22/2020 12:00:00 AM EST eCW1 ([facility]) Outpatient Attender: Regulo Casillas MD Main Office 08/28/2020 09:15:00 AM EST MEDENT ([facility]) Immunizations Vaccine Date Status Description Data Source(s) COVID-19 VACCINE Moderna 08/12/2021 12:00:00 AM EDT completed [facility] Vaccine Series Complete: YESThis Data wa s Submitted to [facility] [employer]. COVID-19 VACCINE Moderna 11/13/2020 12:00:00 AM EST completed [facility] Vaccine Series Complete: YESThis Data wa s Submitted to [facility] [employer]. COVID-19 VACCINE Moderna 10/16/2020 12:00:00 AM EST completed [facility] Vaccine Series Complete: NOThis Data was Submitted to [facility] [employer]. Medications Medication Brand Name Start Date Product Form Dose Route Admi nistrative Instructions Pharmacy Instructions Status Indications Reaction Description Data Source(s) Amoxicillin 875 MG Oral Tablet Amoxicillin 875 MG 01/18/2021 12:00: 00 AM EDT 1.0 {tablet} active Amoxicillin 875 MG eCW1 ([facility]) Amoxicillin 875 MG Oral Tablet Amoxicillin 875 MG 01/18/2021 12:00: 00 AM EDT 1.0 {tablet} active Amoxicillin 875 MG eCW1 ([facility]) 875 mg 01/18/2021 12:00:00 AM EDT tablet 20 TAKE ONE TABLET BY MOUTH TWICE A DAY FOR 10 DAYS TAKE ONE TABLET BY MOUTH TWICE A DAY FOR 10 DAYS SOLD: 01/19/2021 [facility] Amoxicillin 875 MG Oral Tablet Amoxicillin 875 MG 01/18/2021 12:00: 00 AM EDT 1.0 {tablet} active Amoxicillin 875 MG eCW1 ([facility]) Amoxicillin 875 MG Oral Tablet Amoxicillin 875 MG 01/18/2021 12:00: 00 AM EDT 1.0 {tablet} active Amoxicillin 875 MG eCW1 ([facility]) 25 mg 01/18/2021 12:00:00 AM EDT [...] 1.0 {tablet} active Amoxicillin 875 MG eCW1 ([facility]) Amoxicillin 875 MG Oral Tablet Amoxicillin 875 MG 01/18/2021 12:00: 00 AM EDT 1.0 {tablet} active Amoxicillin 875 MG eCW1 ([facility]) 17.5-3.13-1.6 gram 01/14/2021 12:00:00 AM EDT recon soln 354 USE DIRECTED USE DIRECTED SOLD: 01/19/2021 [facility] Suprep Bowel Prep Kit Suprep Bowel Prep Kit 08/29/2020 12:00:00 AM EST active MEDENT ([facility]) 10-12.5 mg 08/08/2020 12:00:00 AM EDT tablet [...] type / Coverage type Policy ID Covered republican ID Covered republican's relationship to gill Policy Gill Plan Information EX[employer] BCBS [id number] [facility] VYS [id number] EXCELLUS [id number] Self [id number] BCBS OF [facility] 306/806 [id number] [facility] Commercial [id number] Self [id number] BS [place] Commercial [id number] Self BS [place] Commercial [id number] Self [id number] Blue Cross Blue Shield P [id number] SELF [id number] [employer] BC[employer] B [id number] S VYS [id number] [place] [id number] S [place] [id number] S VYS [id number] ANSI-Commercial [id number] ANSI-Commercial [id number] ANSI-Commercial [id number] ANSI-Commercial [id number] ANSI-Commercial [id number] ANSI-Commercial [id number] ANSI-Commercial [id number] ANSI-Commercial [id number] ANSI-Commercial [id number] [employer] BCBS Health Maintenance Organization (HMO) [id number] Self [id number] [place] BC [id number] S VYS [id number] [place] PHY [id number] SP [id number] MVP GOLD [id number] SP [id number] OTHER WORKERS COMPENSATION UNAVAILABLE UNAVAILABLE BCBS [place] WATN PPO 302/307 [id number] SP [id number] [facility] P UNAVAILABLE [id number] S UNAVAILABLE BCBS [place] WATN PPO 302/307 [id number] SP [id number] [place] WATN PPO 302/307 [id number] SP [id number] [place] WATN 306/806 [id number] SP [id number] SELF PAY ONLY [id number] SP [id number] [employer] [place] WATN 306/806 [id number] SP [id number] [employer] [place] WATN 306/806 [id number] SP [id number] [place] WATN 306/806 [id number] SP [id number] Problems, Conditions, and Diagnoses Code Display Name Description Problem Type Effective Dates Data Source(s) L84 Callosity Callosity Problem 02/08/2021 12:00:00 AM PERI [facility]PER ([facility] B35.1 Onychomycosis Onychomycosis Problem 02/08/2021 12:00:00 AM EDT MEDENT ([facility] M21.6x9 Pronation Pronation Problem 02/08/2021 12:00:00 AM ED T MEDENT ([facility] R61 [id number] Night sweats Problem 10/23/2020 12:00:00 AM EST eCW1 ([facility]) I71.2 [id number] Thoracic aneurysm without mention of rupt ure Problem 10/23/2020 12:00:00 AM EST eCW1 ([facility]) [id number] Screening for malignant neoplasm of colo n Screening for malignant neoplasm of colon Problem 08/28/2020 12:00:00 AM EST MEDENT ([facility]) I71.2 [id number] Thoracic aortic aneurysm, without rupture Problem 08/21/2020 12:00:00 AM EST eCW1 ([facility]) Surgeries/Procedures Procedure Description Date Indications Data Source(s) COLSC FLX PROX SPLENIC FLXR RMVL LES SNARE TQ 02/19/20 12:00:00 AM EDT MEDENT ([facility]) Results ID Date Data Source [id number] 07/02/2021 08:57:00 AM EDT [facility] Name Value Range Interpretation Code Description Data Sonja rce(s) Supporting Document(s) SARS coronavirus 2 RNA [Presence] in Res piratory specimen by JCARLOS with probe detection NEGATIVE [facility] was ordered by [facility] a nd reported by [facility]. ID Date Data Source [id number] 02/18/2021 09:10:00 AM EDT MEDENT ([facility]) Name Value Range Interpretation Code Description Data Sonja rce(s) Supporting Document(s) Surgical pathology study Laboratory test result MEDENT ([facility]) FINAL DIAGNOSIS A-Colon, cecal polyp, polypectomy: Tubular [...] MD 02/19/2021 1129 ID Date Data Source [id number] 02/13/2021 11:50:00 AM EDT [facility] Name Value Range Interpretation Code Description Data Sonja rce(s) Supporting Document(s) SARS-CoV-2 (COVID-19) RNA [Presence] in Respiratory specimen by JCARLOS with probe detection Not Detected [facility] This lab was ordered by [facility] and reported by [facility] ID Date Data Source [id number] 01/16/2021 11:00:00 AM EDT [facility] Name Value Range Interpretation Code Description Data Sonja rce(s) Supporting Document(s) SARS-CoV-2 (COVID-19) RNA [Presence] in Respiratory specimen by JCARLOS with probe detection Not Detected [facility] This lab was ordered by [facility] and reported by [facility]. ID Date Data Source [id number] 11/08/2020 09:04:00 AM EST [facility] Name Value Range Interpretation Code Description Data Sonja rce(s) Supporting Document(s) SARS coronavirus 2 RNA Not Detected [facility] This lab was ordered by [facility] and reported by [facility]. ID Date Data Source [id number] 08/09/2020 12:00:00 AM EDT [facility] Name Value Range Interpretation Code Description Data Sonja rce(s) Supporting Document(s) 2019-nCoV RNA XXX JCARLOS+probe-Imp [facility] This lab was ordered by [facility] and reported by [employer] [facility] ID Date Data Source [id number] 08/08/2020 12:00:00 AM EDT [facility] Name Value Range Interpretation Code Description Data Sonja rce(s) Supporting Document(s) SARS coronavirus 2 Ag [facility] This lab was ordered by [facility] and reported by [facility]. Procedure Social History Code Duration Value Status Description Data Source(s ) Smoking 01/18/2021 12:00:00 AM EDT Never Smoker completed Never S moker eCW1 ([facility]) Smoking 01/18/2021 12:00:00 AM EDT Never Smoker completed Never S moker eCW1 ([facility]) Smoking 01/18/2021 12:00:00 AM EDT Never Smoker completed Never S moker eCW1 ([facility]) Smoking 01/18/2021 12:00:00 AM EDT Never Smoker completed Never S moker eCW1 ([facility]) Smoking 01/18/2021 12:00:00 AM EDT Never Smoker completed Never S moker eCW1 ([facility]) Smoking 01/18/2021 12:00:00 AM EDT Never Smoker completed Never S moker eCW1 ([facility]) Smoking 10/23/2020 12:00:00 AM EST Never Smoker completed Never S moker eCW1 ([facility]) Smoking 10/23/2020 12:00:00 AM EST Never Smoker completed Never S moker eCW1 ([facility]) Smoking 10/23/2020 12:00:00 AM EST Never Smoker completed Never S moker eCW1 ([facility]) Vital Signs ID Date Data Source [...] blood pressure 72 mm[Hg] 72 mm[Hg] eCW1 ([facility]) Body weight 243.12 [lb_av] 243.12 [lb_av] eCW1 ([facility]) Body height 67.5 [in_i] 67.5 [in_i] [facility] Body mass index (BMI) [Ratio] 37.51 kg/m2 37.51 kg/m2 eCW1 ([facility]) Heart rate 85 /min 85 /min eCW1 ([facility]) Respiratory rate 16 /min 16 /min eCW1 ([facility]) Body temperature 98.1 [degF] 98.1 [degF] eCW1 ( [facility]) Systolic blood pressure 102 mm[Hg] 102 mm[Hg] e CW1 ([facility]) Body height 65 [in_i] 65 [in_i] [facility] ([facility] 5'5" Body weight 240.00 [lb_av] 240.00 [lb_av] MEDEN T ([facility]) Systolic blood pressure 134 mm[Hg] 134 mm[Hg] M EDENT ([facility]) Diastolic blood pressure 85 mm[Hg] 85 mm[Hg] MEDENT ([facility]) Heart rate 72 /min 72 /min [facility] ([facility]) Body mass index (BMI) [Ratio] 39.9 kg/m2 39.9 k g/m2 MEDENT ([facility]) Body weight 108.864 kg 108.864 kg [facility] ([facility]) Body temperature 97.8 [degF] 97.8 [degF] MEDENT ([facility]) Patient Treatment Plan of Care Planned Activity Planned Date Details Description Data Source (s) Amoxicillin 875 MG Oral Tablet 01/18/2021 12:00:00 AM EDT eCW1 ([facility]) Amoxicillin 875 MG Oral Tablet 01/18/2021 12:00:00 AM EDT eCW1 ([facility]) Amoxicillin 875 MG Oral Tablet 01/18/2021 12:00:00 AM EDT eCW1 ([facility]) Amoxicillin 875 MG Oral Tablet 01/18/2021 12:00:00 AM EDT eCW1 ([facility]) Amoxicillin 875 MG Oral Tablet 01/18/2021 12:00:00 AM EDT eCW1 ([facility]) Amoxicillin 875 MG Oral Tablet 01/18/2021 12:00:00 AM EDT eCW1 ([facility])
[2021-08-17] MEDS ORDERED: ACETAMINOPHEN 325 MG TAB PO ONE (11:40)
[2021-08-17] MEDS ORDERED: diphenhydrAMINE 50MG/ML VIAL (J1200) IV ONE (11:40)
[2021-08-17] MEDS ORDERED: NS 1,000 ML IV ONE (11:45)
[2021-08-17 12:18] LABS: BASO # 0.1 10^3/uL (0.0-0.2); BASO % 0.8 % (0.0-1.0); EOS # 0.3 10^3/uL (0.0-0.5); EOS % 4.3 % (0.0-3.0); HEMATOCRIT 45.7 % (36.0-47.0); HEMOGLOBIN 14.5 g/dl (12.0-15.5); LYMPH # 2.3 10^3/uL (1.5-5.0); LYMPH % 37.7 % (24.0-44.0); MEAN CORPUSCULAR HGB CONC 31.7 g/dl (32.0-36.5); MEAN CORPUSCULAR VOLUME 88.4 fl (80.0-96.0); MONO # 0.5 10^3/uL (0.0-0.8); MONO % 7.5 % (2.0-8.0); NEUTROPHILS % 49.5 % (36.0-66.0); PLATELET COUNT, AUTOMATED 298 10^3/uL (150-450); RED BLOOD COUNT 5.17 10^6/uL (4.00-5.40)
[2021-08-17 12:51] LABS: ALBUMIN 3.9 GM/DL (3.2-5.2); ALT/SGPT 73 U/L (12-78); BILIRUBIN,DIRECT 0.1 MG/DL (0.0-0.2); BILIRUBIN,TOTAL 0.3 MG/DL (0.2-1.0); C REACTIVE PROTEIN QUANTITATIV 1.42 MG/DL (0.00-0.30); CK-MB VALUE MASS < 1.0 NG/ML (<3.6); CPK CREATINE PHOSPHOKINASE 48 U/L (26-192); LIPASE 163 U/L (73-393); MB/CK RELATIVE INDEX 2.08 (< OR =4); TOTAL PROTEIN 7.9 GM/DL (6.4-8.2); TROPONIN I < 0.02 NG/ML (< 0.10)
[2021-08-17 12:51] LABS: RSV AMPLIFICATION NEGATIVE (NEGATIVE)
[2021-08-17 13:11] LABS: ERYTHROCYTE SEDIMENTATION RATE 24 mm/hr (0-30)
[2021-08-17 13:14] LABS: BLOOD UREA NITROGEN 19 MG/DL (7-18); CALCIUM LEVEL 9.5 MG/DL (8.5-10.1); CARBON DIOXIDE LEVEL 28 MEQ/L (21-32); CHLORIDE LEVEL 107 MEQ/L (98-107); GLOMERULAR FILTRATION RATE > 60.0 (>51); GLUCOSE, FASTING 95 MG/DL (70-100); SODIUM LEVEL 139 MEQ/L (136-145)
[2021-08-17] MEDS ORDERED: ISOVUE-370 76% 100ML VIAL As Ordered ONE (13:30)
--- NOTE | 2021-08-17 13:57 | REP ---
INDICATION: prolonged headache. COMPARISON: None. TECHNIQUE: Contiguous 5 mm thick axial projection images were obtained of the head. 2D coronal reconstructions were performed. FINDINGS: There is no evidence of acute intracranial hemorrhage or infarction. There are no abnormal intracranial masses or mass effects. There is mild dilatation of the right lateral ventricle with displacement of the septum pellucidum to the left. The 3rd ventricle, the cerebral aqueduct, and 4th ventricle appear unremarkable. There is no definite mass seen at the foramen of Monro. The skull base and calvarium are normal. The intraorbital contents and visualized extracranial contents are normal. IMPRESSION: 1. Mild dilatation of the right lateral ventricle with displacement of the septum pellucidum to the left suggesting a possible mass at the foramen of Monro. 2. The examination is otherwise unremarkable. RECOMMENDATION: MR imaging of the brain without and with intravenous contrast. <Electronically signed by Damon Saldivar > 08/17/21 [id number]
--- NOTE | 2021-08-17 14:15 | REP ---
INDICATION: Headache/hx AA. COMPARISON: CT angio chest, 11/05/2015 and 06/23/2018. TECHNIQUE: Imaging protocol: CTA chest with IV contrast. Contiguous 3 mm thick axial projection images were obtained through the chest. 2D sagittal and coronal reconstructions were performed. Radiation optimization: All CT scans at this facility use at least one of these dose optimization techniques: automated exposure control; mA and/or kV adjustment per patient size (includes targeted exams where dose is matched to clinical indication); or iterative reconstruction. CONTRAST: 75 cc Isovue 370 intravenous FINDINGS: Lower neck: The thyroid gland is normal. There is no supraclavicular lymphadenopathy. Mediastinum: No abnormal masses or lymphadenopathy. Heart/thoracic aorta/pulmonary arterial tree: The heart is enlarged. There is no pericardial effusion. There is aneurysmal dilatation of the ascending thoracic aorta measuring 4.5 cm (was 4.6) in diameter (upper normal 4.0 cm). There is no thoracic aortic aneurysm. There are no filling defects in the pulmonary arterial tree. Upper abdomen: Fatty liver infiltration. Thoracic esophagus: There is a small hiatal hernia. Chest wall and axilla: The breasts and soft tissues of the chest wall appear normal. There is no axillary lymphadenopathy. There is degenerative disc disease, T10-11. Lung parenchyma: The lungs are clear. There are no pulmonary nodules or masses. There is no significant interstitial or alveolar lung disease. There are no pleural effusions. IMPRESSION: 1. There is aneurysmal dilatation of the ascending thoracic aorta. No significant change. 2. Cardiomegaly. 3. No evidence of pulmonary emboli. 4. Fatty liver infiltration. 5. There is a small hiatal hernia. 6. Other findings as noted. <Electronically signed by Damon Saldivar > 08/17/21 [id number]
[2021-08-17 15:49] VITALS: BP 128/75
[2021-08-17] MEDS ORDERED: ATIV1TAB10 PO (15:50)
--- NOTE | 2021-08-17 17:46 | ED PDOC ---
Post-Departure Follow-Up yasmin howe and shelia faxed formal repor of ct head and ct chest for fu. as pt had co ntrast she was unable to obtain mri w contrast in ED. She will do as outpt. Mary Stahl MD Aug 17, 2021 17:46
--- NOTE | 2021-08-17 20:05 | ECGEPIP ---
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
== END 2021-08-17 16:13 | disposition home or self-care (01) ==
LOC: M ED 09:02
DX: R51.9 Headache, unspecified (principal); R94.02 Abnormal brain scan; K44.9 Diaphragmatic hernia without obstruction or gangrene; I10 Essential (primary) hypertension; I71.2 Thoracic aortic aneurysm, without rupture; Z91.011 Allergy to milk products; Z91.048 Other nonmedicinal substance allergy status; Z79.899 Other long term (current) drug therapy
CPT/HCPCS: 70450; 71275; 80048; 80076; 82550; 82553; 83690; 84443; 84484; 85025; 85652; 86140; 87631; 93005; 96361; 96374; 99284; J1200; Q9967

== ENCOUNTER 2021-08-18 13:47 | Emergency (ER) | payer BC ==
[~2021-08-18] VITALS: Ht 170.2 cm; Wt 112.6 kg
[~2021-08-18 13:47] MED LIST changes: +ATIV1TAB10 PO
--- OUTSIDE RECORDS SUMMARY | 2021-08-18 13:54 | CCD ---
Author Author [facility] Organization [facility] Address Unknown Phone Unavailable Care Team Providers Care Db2 Systems Programmer Name Role Phone Elissa Casillas MD Unavailable [...] Unavailable Elissa Casillas MD Unavailable Unavailable SonjaElissa MD Unavailable Unavailable SonjaElissa morales MD Unavailable Unavailable SonjaElissa morales MD Unavailable Unavailable SonjaElissa morales MD Unavailable Unavailable SonjaElissa morales MD Unavailable Unavailable SonjaElissa MD Unavailable Unavailable SonjaElissa morales MD Unavailable Unavailable Sonja S Regulo CARIAS Unavailable Unavailable SonjaElissa MD Unavailable Unavailable SonjaElissa MD Unavailable Unavailable SonjaElissa MD Unavailable Unavailable SonjaElissa MD Unavailable Unavailable Sonja S Regulo CARIAS Unavailable Unavailable SonjaElissa MD Unavailable Unavailable Sonja S Regulo CARIAS Unavailable Unavailable SonjaElissa morales [...] Unavailable Elissa Casillas MD Unavailable Unavailable Amber MEYER DPM Unavailable Unavailable Amber MEYER DPM Unavailable Unavailable Amber MEYER DPM Unavailable Unavailable Amber MEYER DPM Unavailable [...] is protected by Article 27-F of the [facility] Public Health law. If you continue you may have access to information: Regarding HIV / AIDS; Provided by facilities licensed or operated by the [facility] Office of Mental Health; or Provided by the [facility] Office for People With Developmental Disabilities. If such information is present, then the following [facility] mandated warning applies: This information has [...] Description Data Source(s) Unknown Unknown Problem MEDENT ([facility]) Unknown Female Problem MEDENT ([facility] ) Encounters Encounter Providers Location Date Indications Data Source(s ) Unknown [address] [facility] [address] 08/16/2021 12:00:00 AM EDT eCW1 ([facility]) Unknown [address] [facility] [address] 02/14/2021 12:00:00 AM EDT eCW1 [facility]) Outpatient Attender: FRANSISCO MEYER [facility] 01/18 03:15:00 PM EDT MEDENT ([facility] Unknown [address] [facility] [place] [address] 02/12/2021 12:00:00 AM EDT eCW1 ([facility]) Unknown [address] [facility] [place] [address] 02/12/2021 12:00:00 AM EDT eCW1 ([facility]) Outpatient Attender: FRANSISCO MEYER [facility] 05/2021 03:30:00 PM EDT MEDENT ([facility] Outpatient [address] [facility] [address] 01/18/2021 12:00:00 AM EDT eCW1 ([facility]) Unknown [address] [facility] [place] [address] 01/18/2021 12:00:00 AM EDT eCW1 ([facility]) Unknown [address] [facility] [place] [address] 01/18/2021 12:00:00 AM EDT eCW1 ([facility]) TeleMedicine Phone E/M by Phys 11-[address] [phone] 10/23/2020 12:00:00 AM EST [facility] Unknown [address] [facility] [address] 10/23/2020 12:00:00 AM EST eCW1 ([facility]) Unknown [address] [facility] [address] 10/22/2020 12:00:00 AM EST eCW1 ([facility]) Outpatient Attender: Regulo Casillas MD Main Office 08/28/2020 09:15:00 AM EST MEDENT ([facility]) Immunizations Vaccine Date Status Description Data Source(s) COVID-19 VACCINE Moderna 08/12/2021 12:00:00 AM EDT completed [facility] Vaccine Series Complete: YESThis Data wa s Submitted to [facility] [employer]. COVID-19 VACCINE Moderna 11/13/2020 12:00:00 AM EST completed [facility] Vaccine Series Complete: YESThis Data wa s Submitted to [facility] [employer]. COVID-19 VACCINE Moderna 10/16/2020 12:00:00 AM EST completed [facility] Vaccine Series Complete: NOThis Data was Submitted to [facility] [employer]. Medications Medication Brand Name Start Date Product Form Dose Route Admi nistrative Instructions Pharmacy Instructions Status Indications Reaction Description Data Source(s) 25 mg 07/15/2021 12:00:00 AM EDT tablet 180 TAKE ONE TABLET BY MOUTH TWICE A DAY TAKE ONE TABLET BY MOUTH TWICE A DAY SOLD: 08/16/2021 [facility] Amoxicillin 875 MG Oral Tablet Amoxicillin 875 MG 01/18/2021 12:00: 00 AM EDT 1.0 {tablet} active Amoxicillin 875 MG eCW1 ([facility]) Amoxicillin 875 MG Oral Tablet Amoxicillin 875 MG 01/18/2021 12:00: 00 AM EDT 1.0 {tablet} active Amoxicillin 875 MG eCW1 ([facility]) 875 mg 01/18/2021 12:00:00 AM EDT tablet 20 TAKE ONE TABLET BY MOUTH TWICE A DAY FOR 10 DAYS TAKE ONE TABLET BY MOUTH TWICE A DAY FOR 10 DAYS SOLD: 01/19/2021 [facility] Amoxicillin 875 MG Oral Tablet Amoxicillin 875 MG 01/18/2021 12:00: 00 AM EDT 1.0 {tablet} active Amoxicillin 875 MG eCW1 ([facility]) Amoxicillin 875 MG Oral Tablet Amoxicillin 875 MG 01/18/2021 12:00: 00 AM EDT 1.0 {tablet} active Amoxicillin 875 MG eCW1 ([facility]) Amoxicillin 875 MG Oral Tablet Amoxicillin 875 MG 01/18/2021 12:00: 00 AM EDT 1.0 {tablet} active Amoxicillin 875 MG eCW1 ([facility]) 25 mg 01/18/2021 12:00:00 AM EDT tablet 180 TAKE ONE TABLET BY MOUTH TWICE A DAY TAKE ONE TABLET BY MOUTH TWICE A DAY SOLD: 01/19/2021 [facility] 25 mg 01/18/2021 12:00:00 AM EDT tablet 180 TAKE ONE TABLET BY MOUTH TWICE A DAY TAKE ONE TABLET BY MOUTH TWICE A DAY SOLD: 04/19/2021 [facility] Amoxicillin 875 MG Oral Tablet Amoxicillin 875 MG 01/18/2021 12:00: 00 AM EDT 1.0 {tablet} active Amoxicillin 875 MG eCW1 ([facility]) Amoxicillin 875 MG Oral Tablet Amoxicillin 875 MG 01/18/2021 12:00: 00 AM EDT 1.0 {tablet} active Amoxicillin 875 MG eCW1 ([facility]) 17.5-3.13-1.6 gram 01/14/2021 12:00:00 AM EDT recon soln 354 USE DIRECTED USE DIRECTED SOLD: 01/19/2021 [facility] Suprep Bowel Prep Kit Suprep Bowel Prep Kit 08/29/2020 12:00:00 AM EST active MEDENT ([facility]) Hydrochlorothiazide 12.5 MG / Lisinopril 10 MG Oral Ta blet 10-12.5 mg LISINOPRIL/HYDROCHLOROTHIAZIDE 08/08/2020 12:00:00 AM EDT tablet 180 TAKE TWO TABLETS BY MOUTH EVERY DAY TAKE TWO TABLETS BY MOUTH EVERY DAY SOLD: 08/16/2021 [facility] 10-12.5 mg 08/08/2020 12:00:00 AM EDT [...] Covered republican ID Covered republican's relationship to roy Policy Roy Plan Information EXCE[employer] BCBS [id number] [place] VYS [id number] EXCELLUS H [id number] Self [id number] [place] WATN 306/806 [id number] SP [id number] BS [place] [employer] [id number] Self [id number] BS [place] [employer] [id number] Self BS [place] [employer] [id number] Self [id number] Blue Cross Blue Shield P [id number] SELF [id number] [employer] B [id number] S VYS [id number] [place] [id number] S VYS [id number] [place] [id number] S VYS [id number] ANSI-Commercial [id number] ANSI-Commercial [id number] ANSI-Commercial [id number] ANSI-Commercial [id number] ANSI-Commercial [id number] ANSI-Commercial [id number] ANSI-Commercial [id number] ANSI-Commercial [id number] ANSI-Commercial [id number] [employer] BCBS Health Maintenance Organization (HMO) [id number] Self [id number] [place] BC [id number] S VYS [id number] [place] PHY [id number] SP [id number] MVP GOLD [id number] SP [id number] OTHER WORKERS COMPENSATION UNAVAILABLE UNAVAILABLE BCBS [place] WAT[place] PPO 302/[id number] SP [id number] [facility] P UNAVAILABLE [id number] S UNAVAILABLE BCBS [place] WAT[place] PPO 302/307 [id number] SP [id number] [place] WAT[place] PPO 302/307 [id number] SP [id number] [place] WATN 306/806 [id number] SP [id number] SELF PAY ONLY [id number] SP [id number] [employer] WATN 306/806 [id number] SP [id number] [place] WATN 306/806 [id number] SP [id number] [place] WAT[place] 306/806 [id number] SP [id number] Problems, Conditions, and Diagnoses Code Display Name Description Problem Type Effective Dates Data Source(s) L84 Callosity Callosity Problem 02/08/2021 12:00:00 AM ED T MEDENT ([facility] B35.1 Onychomycosis Onychomycosis Problem 02/08/2021 12:00:00 AM EDT MEDENT ([facility] M21.6x9 Pronation Pronation Problem 02/08/2021 12:00:00 AM ED T MEDENT ([facility] R61 [id number] Night sweats Problem 10/23/2020 12:00:00 AM EST eCW1 ([facility]) I71.2 [id number] Thoracic aneurysm without mention of rupt ure Problem 10/23/2020 12:00:00 AM EST eCW1 ([facility]) [id number] Screening for malignant neoplasm of colo n Screening for malignant neoplasm of colon Problem 08/28/2020 12:00:00 AM EST MEDENT ([facility]) I71.2 13773284 Thoracic aortic aneurysm, without rupture Problem 08/21/2020 12:00:00 AM EST eCW1 ([facility]) Surgeries/Procedures Procedure Description Date Indications Data Source(s) COLSC FLX PROX SPLENIC FLXR RMVL LES SNARE TQ 02/19/20 12:00:00 AM EDT [facility]) Results ID Date Data Source [id number] 08/17/2021 12:07:00 PM EDT [facility] Name Value Range Interpretation Code Description Data Sonja rce(s) Supporting Document(s) SARS coronavirus 2 RNA [Presence] in Res piratory specimen by JCARLOS with probe detection NEGATIVE [facility] This lab was ordered by [facility] a nd reported by [facility]. ID Date Data Source [id number] 07/02/2021 08:57:00 AM EDT [facility] Name Value Range Interpretation Code Description Data Sonja rce(s) Supporting Document(s) SARS coronavirus 2 RNA [Presence] in Res piratory specimen by JCARLOS with probe detection NEGATIVE [facility] This lab was ordered by [facility] a nd reported by [facility]. ID Date Data Source [id number] 02/18/2021 09:10:00 AM EDT [employer]In[facility] [employer] ([facility]) Name Value Range Interpretation Code Description Data Sonja rce(s) Supporting Document(s) Surgical pathology study Laboratory test result [facility] ([facility]) FINAL DIAGNOSIS A-Colon, cecal polyp, polypectomy: Tubular adenoma. Separate fragments of hyperplastic polyp. B--Colon, polyp @ 25cm, polypectomy: Hyperplastic polyp. 02/19/2021 - 1128 CLINICAL DIAGNOSIS Screening 02/18/2021 - 1448 GROSS DIAGNOSIS A - Received in formalin labeled "cecal polyp" and consists of fragments of tissue, 0.4 x 0.3 x 0.1 cm in aggregate. All in one. B - Received in formalin labeled "polyp @ 25 cm" and consists of fragments of tissue, 0.4 x 0.3 x 0.2 cm. All in one. -OA 02/18/2021 - 1448 Signed MARTÍN SNIDER MD 02/19/20211128 ID Date Data Source [id number] 02/13/2021 11:50:00 AM EDT [facility] Name Value Range Interpretation Code Description Data Sonja rce(s) Supporting Document(s) SARS-CoV-2 (COVID-19) RNA [Presence] in Respiratory specimen by JCARLOS with probe detection Not Detected [facility] This lab was ordered by [facility] and reported by [employer]. ID Date Data Source [id number] 01/16/2021 11:00:00 AM EDT [facility] Name Value Range Interpretation Code Description Data Sonja rce(s) Supporting Document(s) SARS-CoV-2 (COVID-19) RNA [Presence] in Respiratory specimen by JCARLOS with probe detection Not Detected [facility] This lab was ordered by [facility] and reported by [employer] ID Date Data Source [id number] 11/08/2020 09:04:00 AM EST [facility] Name Value Range Interpretation Code Description Data Sonja rce(s) Supporting Document(s) SARS coronavirus 2 RNA Not Detected [facility] This lab was ordered by [facility] and reported by [facility]. ID Date Data Source [id number] 08/09/2020 12:00:00 AM EDT [facility] Name Value Range Interpretation Code Description Data Sonja rce(s) Supporting Document(s) 2019-nCoV RNA XXX JCARLOS+probe-Imp [facility] This lab was ordered by [facility] and reported by [employer] ID Date Data Source [id number] 08/08/2020 12:00:00 AM EDT [facility] Name Value Range Interpretation Code Description Data Sonja rce(s) Supporting Document(s) SARS coronavirus 2 Ag [facility] This lab was ordered by [facility] and reported by [facility]. Procedure Social History Code Duration Value Status Description Data Source(s ) Smoking 01/18/2021 12:00:00 AM EDT Never Smoker completed Never S moker eCW1 ([facility]) Smoking 01/18/2021 12:00:00 AM EDT Never Smoker completed Never S moker eCW1 ([facility]) Smoking 01/18/2021 12:00:00 AM EDT Never Smoker completed Never S moker eCW1 ([facility]) Smoking 01/18/2021 12:00:00 AM EDT Never Smoker completed Never S moker eCW1 ([facility]) Smoking 01/18/2021 12:00:00 AM EDT Never Smoker completed Never S moker eCW1 ([facility]) Smoking 01/18/2021 12:00:00 AM EDT Never Smoker completed Never S moker eCW1 ([facility]) Smoking 01/18/2021 12:00:00 AM EDT Never Smoker completed Never S moker eCW1 ([facility]) Smoking 10/23/2020 12:00:00 AM EST Never Smoker completed Never S moker eCW1 ([facility]) Smoking 10/23/2020 12:00:00 AM EST Never Smoker completed Never S moker eCW1 ([facility]) Smoking 10/23/2020 12:00:00 AM EST Never Smoker completed Never S moker eCW1 ([facility]) Vital Signs ID Date Data Source UNK Name Value Range Interpretation Code Description Data Source(s) Body height 67 [in_i] 67 [in_i] MEDENT ([facility] 5'7" Body weight 243.00 [lb_av] 243.00 [lb_av] MEDEN T ([facility] Systolic blood pressure 110 mm[Hg] 110 mm[Hg] M EDENT ([facility] Diastolic blood pressure 78 mm[Hg] 78 mm[Hg] MEDENT ([facility] Heart rate 81 /min 81 /min MEDENT ([facility] Body mass index (BMI) [Ratio] 38.1 kg/m2 38.1 k g/m2 MEDENT ([facility] Body weight 243.12 [lb_av] 243.12 [lb_av] eCW1 ([facility]) Body height 67.5 [in_i] 67.5 [in_i] eCW1 ([facility]) Body mass index (BMI) [Ratio] 37.51 kg/m2 37.51 kg/m2 W1 ([facility]) Heart rate 85 /min 85 /min eCW1 ([facility]) Respiratory rate 16 /min 16 /min eCW1 ([facility]) Body temperature 98.1 [degF] 98.1 [degF] eCW1 ( [facility]) Systolic blood pressure 102 mm[Hg] 102 mm[Hg] e CW1 ([facility]) Diastolic blood pressure 72 mm[Hg] 72 mm[Hg] eCW1 ([facility]) Body height 65 [in_i] 65 [in_i] MEDENT ([facility] 5'5" Heart rate 72 /min 72 /min MED[facility] ([facility]) Body weight 240.00 [lb_av] 240.00 [lb_av] MEDEN T ([facility]) Body mass index (BMI) [Ratio] 39.9 kg/m2 39.9 k g/m2 MEDENT ([facility]) Systolic blood pressure 134 mm[Hg] 134 mm[Hg] M EDENT ([facility]) Body weight 108.864 kg 108.864 kg MEDENT ([facility]) Body temperature 97.8 [degF] 97.8 [degF] MEDENT ([facility]) Diastolic blood pressure 85 mm[Hg] 85 mm[Hg] MEDENT ([facility]) Patient Treatment Plan of Care Planned Activity Planned Date Details Description Data Source (s) Amoxicillin 875 MG Oral Tablet 01/18/2021 12:00:00 AM EDT eCW1 ([facility]) Amoxicillin 875 MG Oral Tablet 01/18/2021 12:00:00 AM EDT eCW1 ([facility]) Amoxicillin 875 MG Oral Tablet 01/18/2021 12:00:00 AM EDT eCW1 ([facility]) Amoxicillin 875 MG Oral Tablet 01/18/2021 12:00:00 AM EDT eCW1 ([facility]) Amoxicillin 875 MG Oral Tablet 01/18/2021 12:00:00 AM EDT eCW1 ([facility]) Amoxicillin 875 MG Oral Tablet 01/18/2021 12:00:00 AM EDT eCW1 ([facility]) Amoxicillin 875 MG Oral Tablet 01/18/2021 12:00:00 AM EDT eCW1 ([facility])
--- OUTSIDE RECORDS SUMMARY | 2021-08-18 13:54 | CCD ---
Author Author [facility] Organization [facility] Address Unknown Phone Unavailable Care Team Providers Care Entrepreneurial Finance Professor Name Role Phone Wesley Leal Unavailable PROBLEMS Type Condition ICD9-CM Code TWF36-QU Code Onset Dates Condition S tatus W/U Status Risk SNOMED Code Notes Problem Thoracic aortic aneurysm, without rupture I71.2 Active confirmed 71078940 Problem Migraine with aura, not intractable, without sta tus migrainosus G43.109 Active confirmed 5896469 Problem Essential (primary) hypertension I10 Active conf irmed 98656645 Problem Hypercholesterolemia E78.00 Active confirmed 26534115 Problem Dilated aortic root I77.810 Active confirmed 919072543 Problem Chest pain, atypical R07.89 Active confirmed 655399703 Problem Thoracic aneurysm without mention of rupture I71.2 Active confirmed 222448188 Problem Latent tuberculosis R76.11 Active confirmed 94607792 Problem Night sweats R61 Active confirmed 4318889 0 Problem Meralgia paresthetica of left side G57.12 Activ e confirmed 61917689 Problem Rosacea L71.9 Active confirmed 974416213 Problem Allergic contact dermatitis due to cosmetics L23.2 Active confirmed 669974471 Problem Daytime sleepiness R40.0 Active confirmed 1 33203060447 Problem Anxiety F41.9 Active confirmed 35805707 ALLERGIES No Known Allergies ENCOUNTERS from 1965 to 2021-08-16 Encounter Location Date Provider Diagnosis [facility] Tamera BUTLER [phone] [place] [address] Jul, Wesley Leal IMMUNIZATIONS Vaccine Route Administration Date Status Influenza 6mo & up Fluzone Unknown Dec 02, 2016 Other s SOCIAL HISTORY Tobacco Use: Social History Observation Description Date Details (start date - stop date) Never Smoker Sex Assigned At : Social History Observation Description Sex Assigned At Unknown Audit Question Answer Notes Total Score: 1 Interpretation: Alcohol Education Jainism: Question Answer Notes Jainism 08 Orthodox Sexual Hx: Question Answer Notes Had sex in the last 12 months (vaginal, oral, or anal)? Yes Have you ever had an STD? No with Men only Drug and Alcohol Question Answer Notes Total Score: 0 Interpretation: No problems reported Alcohol Screening: Question Answer Notes Did you have a drink containing alcohol in the past year? Ye s Points 1 Interpretation Negative How often did you have six or more drinks on one occas ion in the past year? Never (0 points) How many drinks did you have on a typica l day when you were drinking in the past year? 1 or 2 (0 points) How often did you have a drink containing alcohol in t he past year? Monthly or less (1 point) BMI Care Goal Follow-Up Question Answer Notes Above Normal BMI Follow-Up Dietary needs education Tobacco Use: Question Answer Notes Are you a: never smoker never smoker/updated 12/08/2019 REASON FOR REFERRAL No Information VITAL SIGNS No information MEDICATIONS Medication SIG (Take, Route, Frequency, Duration) Notes Start Da te End Date Status Excedrin Migraine 250-250-65 MG 2 tablets Orally Once a day Active Topiramate 25 MG TAKE ONE TABLET BY MOUTH TWICE A DAY for 90 Active Lisinopril-hydroCHLOROthiazide 10-12.5 MG 2 tablet Orally Once a day Active Flonase Allergy Relief 50 MCG/ACT 1 spray in each nost ril Nasally Once a day for 30 day(s) Active Amoxicillin 875 MG 1 tablet Orally Twice a day for 10 day(s) Jan, Active PROCEDURES No Information RESULTS No Results REASON FOR VISIT migraine MEDICAL (GENERAL) HISTORY Type Description Date Medical History HYPERTENSION Medical History ELEVATED CHOLESTEROL Medical History ABNORMAL EKG: HAS SEEN [facility] [place] [facility] Medical History ANXIETY Medical History migraines Medical History latent tuberculosis positive PPD and QuantiFERON-TB Gold on 12/08/14 Medical History rubella and rubeola immune 2015 Medical History aneursym aortic Surgical History 1992 Surgical History T. AND A. A CHILD Hospitalization History No Hospitalization history informati on Goals Section No Information Health Concerns No Information MEDICAL EQUIPMENT No Information MENTAL STATUS No Information FUNCTIONAL STATUS No Information ASSESSMENTS No Information PLAN OF TREATMENT Medication Medication Name Sig Start Date Stop Date Topiramate 25 MG TAKE ONE TABLET BY MOUTH TWICE A DAY for 90 Amoxicillin 875 MG 1 tablet Orally Twice a day for 10 day(s) Jan, Next Appt Details Provider Name:Wesley Leal, 2021-08-20 01 :30:00 PM, [address], , [place], [phone], Insurance Providers Payer Name Payer Address Payer Phone Insured Name Patient Relati onship to Insured Coverage Start Date Coverage End Date [facility] OF [facility] [id number] [facility] [id number] [place] 2015
[2021-08-18] MEDS ORDERED: diazePAM 10MG/2ML SYRINGE (J3360 PER 5MG) IV ONE ×2 (14:25→16:45)
--- OUTSIDE RECORDS SUMMARY | 2021-08-18 15:28 | CCD ---
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 If you continue you may have access to information: Regarding HIV / AIDS; Provided by facilities licensed or operated by the [facility] Office of Mental Health; or Provided by the [facility] Office for People With Developmental Disabilities. If such information is present, then the following [facility] mandated warning applies: This information has [...] law may result in a fine or usp sentence or both. A general authorization for the release of medical or other information is NOT sufficient authorization for further disc losure. Family History Family Member Name Family Member Gender Family Member Status Date o f Status Description Data Source(s) Unknown Unknown Problem MEDENT ([facility]) Unknown Female Problem MEDENT ([facility] ) Encounters Encounter Providers Location Date Indications Data Source(s ) Unknown [address] [facility] [address] 08/16/2021 12:00:00 AM EDT eCW1 ([facility]) Unknown [address] [facility] [address] 02/14/2021 12:00:00 AM EDT eCW1 ([facility] Outpatient Attender: FRANSISCO MEYER [facility] Office 01/18 03:15:00 PM EDT MEDENT ([facility] [place] [address] [facility] [place] [address] 02/12/2021 12:00:00 AM EDT eCW1 ([facility]) [place] [address] [facility] [place] [address] 02/12/2021 12:00:00 AM EDT eCW1 ([facility]) Outpatient Attender: FRANSISCO MEYER [facility] Office 05/2021 03:30:00 PM EDT MEDENT ([facility] Outpatient [address] [facility] [address] 01/18/2021 12:00:00 AM EDT eCW1 ([facility]) Unknown [address] [facility] [place] [address] 01/18/2021 12:00:00 AM EDT eCW1 ([facility]) Unknown [address] [facility] [place] [address] 01/18/2021 12:00:00 AM EDT eCW1 ([facility]) TeleMedicine Phone E/M by Phys 11-[address] [place] [id number] 10/23/2020 12:00:00 AM EST eCW1 ([facility]) [place] [address] [facility] [address] 10/23/2020 12:00:00 AM EST eCW1 ([facility]) [place] [address] [facility] [place] [address] 10/22/2020 12:00:00 AM EST eCW1 ([facility]) Outpatient Attender: Regulo Casillas MD Main Office 08/28/2020 09:15:00 AM EST MEDENT ([facility]) Immunizations Vaccine Date Status Description Data Source(s) COVID-19 VACCINE Moderna 08/12/2021 12:00:00 AM EDT completed [facility] Vaccine Series Complete: YESThis Data wa s Submitted to [facility]. COVID-19 VACCINE Moderna 11/13/2020 12:00:00 AM EST completed [facility] Vaccine Series Complete: YESThis Data wa s Submitted to [facility]. COVID-19 VACCINE Moderna 10/16/2020 12:00:00 AM EST completed [facility] Vaccine Series Complete: NOThis Data was Submitted to [facility]. Medications Medication Brand Name Start Date Product Form Dose Route Admi nistrative Instructions Pharmacy Instructions Status Indications Reaction Description Data Source(s) 25 mg 07/15/2021 12:00:00 AM EDT tablet 180 TAKE ONE TABLET BY MOUTH TWICE A DAY TAKE ONE TABLET BY MOUTH TWICE A DAY SOLD: 08/16/2021 [facility] Amoxicillin 875 MG Oral Tablet Amoxicillin 875 MG 01/18/2021 12:00: 00 AM EDT 1.0 {tablet} active Amoxicillin 875 MG eCW1 ([facility]) Amoxicillin 875 MG Oral Tablet Amoxicillin 875 MG 01/18/2021 12:00: 00 AM EDT 1.0 {tablet} active Amoxicillin 875 MG eCW1 ([facility]) 875 mg 01/18/2021 12:00:00 AM EDT tablet 20 TAKE ONE TABLET BY MOUTH TWICE A DAY FOR 10 DAYS TAKE ONE TABLET BY MOUTH TWICE A DAY FOR 10 DAYS SOLD: 01/19/2021 [facility] Amoxicillin 875 MG Oral Tablet Amoxicillin 875 MG 01/18/2021 12:00: 00 AM EDT 1.0 {tablet} active Amoxicillin 875 MG eCW1 ([facility]) Amoxicillin 875 MG Oral Tablet Amoxicillin 875 MG 01/18/2021 12:00: 00 AM EDT 1.0 {tablet} active Amoxicillin 875 MG eCW1 ([facility]) Amoxicillin 875 MG Oral Tablet Amoxicillin 875 MG 01/18/2021 12:00: 00 AM EDT 1.0 {tablet} active Amoxicillin 875 MG eCW1 ([facility]) 25 mg 01/18/2021 12:00:00 AM EDT tablet [...] 1.0 {tablet} active Amoxicillin 875 MG eCW1 ([facility]) Amoxicillin 875 MG Oral Tablet Amoxicillin 875 MG 01/18/2021 12:00: 00 AM EDT 1.0 {tablet} active Amoxicillin 875 MG eCW1 ([facility]) 17.5-3.13-1.6 gram 01/14/2021 12:00:00 AM EDT recon soln 354 USE DIRECTED USE DIRECTED SOLD: 01/19/2021 [facility] Suprep Bowel Prep Kit Suprep Bowel Prep Kit 08/29/2020 12:00:00 AM EST active MEDENT ([facility]) Hydrochlorothiazide 12.5 MG / Lisinopril 10 MG [...] type / Coverage type Policy ID Covered democrat ID Covered democrat's relationship to roy Policy Roy Plan Information EX[employer] BCBS [id number] [place] VYS [id number] EXCELLUS H [id number] Self [id number] [place] WAT[place] 306/806 [id number] SP [id number] BS [place] [employer] [id number] Self [id number] BS [place] [employer] [id number] Self BS [place] [employer] [id number] Self [id number] Blue Cross Blue Shield P [id number] SELF [id number] [employer] BCBS B [id number] S VYS [id number] [place] [id number] S VYS [id number] [place] [id number] S VYS [id number] ANSI-Commercial [id number] ANSI-Commercial [id number] ANSI-Commercial [id number] ANSI-Commercial [id number] ANSI-Commercial [id number] ANSI-Commercial [id number] ANSI-Commercial [id number] ANSI-Commercial [id number] ANSI-Commercial [id number] [employer] BCBS Health Maintenance Organization (HMO) [id number] Self [id number] [place] BC [id number] S VYS [id number] [place] PHY [id number] SP [id number] MVP GOLD [id number] SP [id number] OTHER WORKERS COMPENSATION UNAVAILABLE UNAVAILABLE BCBS [place] WATN PPO 302/307 [id number] SP [id number] [facility] P UNAVAILABLE [id number] S UNAVAILABLE BCBS [place] WAT[place] PPO 302/307 [id number] SP [id number] [place]AT[place] PPO 302/307 [id number] SP [id number] [place] WATN 306/806 [id number] SP [id number] SELF PAY ONLY [id number] SP [id number] [place] WATN 306/806 [id number] SP [id number] [place] WATN 306/806 [id number] SP [id number] [place] WAT[place] 306/806 [id number] SP [id number] Problems, Conditions, and Diagnoses Code Display Name Description Problem Type Effective Dates Data Source(s) L84 Callosity Callosity Problem 02/08/2021 12:00:00 AM ED T MED[facility] ([facility] B35.1 Onychomycosis Onychomycosis Problem 02/08/2021 12:00:00 AM EDT MED[facility] ([facility] M21.6x9 Pronation Pronation Problem 02/08/2021 12:00:00 AM ED T MED[facility] ([facility] R61 [id number] Night sweats Problem 10/23/2020 12:00:00 AM EST eCW1 ([facility]) I71.2 [id number] Thoracic aneurysm without mention of rupt ure Problem 10/23/2020 12:00:00 AM EST eCW1 ([facility]) [id number] Screening for malignant neoplasm of colo n Screening for malignant neoplasm of colon Problem 08/28/2020 12:00:00 AM EST MEDENT ([facility]) I71.2 [id number] Thoracic aortic aneurysm, without rupture Problem 08/21/2020 12:00:00 AM EST eCW1 ([facility]) Surgeries/Procedures Procedure Description Date Indications Data Source(s) COLSC FLX PROX SPLENIC FLXR RMVL LES SNARE TQ 02/19/20 12:00:00 AM EDT [facility] ([facility]) Results ID Date Data Source [id number] 08/17/2021 12:07:00 PM EDT [facility] Name Value Range Interpretation Code Description Data Sonja rce(s) Supporting Document(s) SARS coronavirus 2 RNA [Presence] in Res piratory specimen by JCARLOS with probe detection NEGATIVE [facility] This lab was ordered by [facility] a nd reported by [facility]. ID Date Data Source [id number] 07/02/2021 08:57:00 AM EDT [facility] Name Value Range Interpretation Code Description Data Sonja rce(s) Supporting Document(s) SARS coronavirus 2 RNA [Presence] in Res piratory specimen by JCARLOS with probe detection NEGATIVE [facility] This lab was ordered by [facility] a nd reported by [facility]. ID Date Data Source [id number] 02/18/2021 09:10:00 AM EDT [facility] ([facility]) Name Value Range Interpretation Code Description Data Sonja rce(s) Supporting Document(s) Surgical pathology study Laboratory test result [facility] ([facility]) FINAL DIAGNOSIS A-Colon, cecal polyp, polypectomy: Tubular [...] SNIDER MD 02/19/20211128 ID Date Data Source [id number] 02/13/2021 11:50:00 AM EDT [facility] Name Value Range Interpretation Code Description Data Sonja rce(s) Supporting Document(s) SARS-CoV-2 (COVID-19) RNA [Presence] in Respiratory specimen by JCARLOS with probe detection Not Detected [facility] This lab was ordered by [facility] and reported by [employer]. ID Date Data Source [id number] 01/16/2021 11:00:00 AM EDT [facility] Name Value Range Interpretation Code Description Data Sonja rce(s) Supporting Document(s) SARS-CoV-2 (COVID-19) RNA [Presence] in Respiratory specimen by JCARLOS with probe detection Not Detected [facility] This lab was ordered by [facility] and reported by [employer] ID Date Data Source [id number] 11/08/2020 09:04:00 AM EST [facility] Name Value Range Interpretation Code Description Data Sonja rce(s) Supporting Document(s) SARS coronavirus 2 RNA Not Detected [facility] This lab was ordered by [facility] and reported by [facility]. ID Date Data Source [id number] 08/09/2020 12:00:00 AM EDT [facility] Name Value Range Interpretation Code Description Data Sonja rce(s) Supporting Document(s) 2019-nCoV RNA XXX JCARLOS+probe-Imp [facility] This lab was ordered by [facility] and reported by [employer] ID Date Data Source [id number] 08/08/2020 12:00:00 AM EDT [facility] Name Value Range Interpretation Code Description Data Sonja rce(s) Supporting Document(s) SARS coronavirus 2 Ag [facility] This lab was ordered by [facility] and reported by [facility]. Procedure Social History Code Duration Value Status Description Data Source(s ) Smoking 01/18/2021 12:00:00 AM EDT Never Smoker completed Never S moker eCW1 ([facility]) Smoking 01/18/2021 12:00:00 AM EDT Never Smoker completed Never S moker eCW1 ([facility]) Smoking 01/18/2021 12:00:00 AM EDT Never Smoker completed Never S moker eCW1 ([facility]) Smoking 01/18/2021 12:00:00 AM EDT Never Smoker completed Never S moker eCW1 ([facility]) Smoking 01/18/2021 12:00:00 AM EDT Never Smoker completed Never S moker eCW1 ([facility]) Smoking 01/18/2021 12:00:00 AM EDT Never Smoker completed Never S moker eCW1 ([facility]) Smoking 01/18/2021 12:00:00 AM EDT Never Smoker completed Never S moker eCW1 ([facility]) Smoking 10/23/2020 12:00:00 AM EST Never Smoker completed Never S moker eCW1 ([facility]) Smoking 10/23/2020 12:00:00 AM EST Never Smoker completed Never S moker eCW1 ([facility]) Smoking 10/23/2020 12:00:00 AM EST Never Smoker completed Never S moker eCW1 ([facility]) Vital Signs ID Date Data Source UNK [...] Body weight 243.12 [lb_av] 243.12 [lb_av] eCW1 ([facility]) Body height 67.5 [in_i] 67.5 [in_i] eCW1 ([facility]) Diastolic blood pressure 72 mm[Hg] 72 mm[Hg] eCW1 ([facility]) Body mass index (BMI) [Ratio] 37.51 kg/m2 37.51 kg/m2 eCW1 ([facility]) Heart rate 85 /min 85 /min eCW1 ([facility]) Respiratory rate 16 /min 16 /min eCW1 ([facility]) Body temperature 98.1 [degF] 98.1 [degF] eCW1 ( [facility]) Systolic blood pressure 102 mm[Hg] 102 mm[Hg] e CW1 ([facility]) Body height 65 [in_i] 65 [in_i] [facility] ([facility]) 5'5" Heart rate 72 /min 72 /min [facility] ([facility]) Body mass index (BMI) [Ratio] 39.9 kg/m2 39.9 k g/m2 MEDENT ([facility]) Body weight 108.864 kg 108.864 kg [facility] ([facility]) Body temperature 97.8 [degF] 97.8 [degF] MEDENT ([facility]) Body weight 240.00 [lb_av] 240.00 [lb_av] MEDEN T ([facility]) Systolic blood pressure 134 mm[Hg] 134 mm[Hg] M EDENT ([facility]) Diastolic blood pressure 85 mm[Hg] 85 mm[Hg] MEDENT ([facility]) Patient Treatment Plan of Care Planned Activity Planned Date Details Description Data Source (s) Amoxicillin 875 MG Oral Tablet 01/18/2021 12:00:00 AM EDT eCW1 ([facility]) Amoxicillin 875 MG Oral Tablet 01/18/2021 12:00:00 AM EDT eCW1 ([facility]) Amoxicillin 875 MG Oral Tablet 01/18/2021 12:00:00 AM EDT eCW1 ([facility]) Amoxicillin 875 MG Oral Tablet 01/18/2021 12:00:00 AM EDT eCW1 ([facility]) Amoxicillin 875 MG Oral Tablet 01/18/2021 12:00:00 AM EDT eCW1 ([facility]) Amoxicillin 875 MG Oral Tablet 01/18/2021 12:00:00 AM EDT eCW1 ([facility]) Amoxicillin 875 MG Oral Tablet 01/18/2021 12:00:00 AM EDT eCW1 ([facility])
[2021-08-18] MEDS ORDERED: PROHANCE 279.3MG/ML 5ML VIAL As Ordered ONE (17:27)
[2021-08-18] MEDS ORDERED: PROHANCE 279.3MG/ML 15ML VIAL As Ordered ONE (17:28)
--- NOTE | 2021-08-18 18:04 | REPVR ---
PROCEDURE INFORMATION: Exam: MR Head Without and With Contrast Exam date and time: 08/18/2021 5:39 PM Age: 56 years old Clinical indication: Other: Headache/ possible mass TECHNIQUE: Imaging protocol: MR of the head without and with intravenous contrast. Contrast material: PROHANCE; Contrast volume: 20 ml; Contrast route: INTRAVENOUS (IV); COMPARISON: CT Head without contrast 08/17/2021 1:26 PM FINDINGS: Brain: No intracranial hemorrhage or extra-axial fluid collection. No evidence of mass effect or midline shift. No white matter abnormalities. No restricted diffusion to suggest acute infarct. No abnormal intracranial enhancement. Cerebral ventricles: Ventricles, cisterns, and sulci are normal. Bones/joints: Unremarkable. Paranasal sinuses: Normal as visualized. No acute sinusitis. Mastoid air cells: No mastoid effusion. Orbital cavity: Unremarkable. Soft tissues: Unremarkable. IMPRESSION: No acute intracranial findings. Electronically signed by: Osvaldo Montaño On 08/18/2021 18:03:29 PM
[2021-08-18 18:10] VITALS: BP 140/78
== END 2021-08-18 18:18 | disposition home or self-care (01) ==
LOC: M ED 13:47
DX: R51.9 Headache, unspecified (principal); I10 Essential (primary) hypertension; I71.2 Thoracic aortic aneurysm, without rupture; Z91.011 Allergy to milk products; Z91.048 Other nonmedicinal substance allergy status
CPT/HCPCS: 70553; 96374; 96376; 99284; A9576; J3360

== ENCOUNTER → 2021-09-05 | Outpatient (REF) ==
[2021-09-05 10:57] LABS: RSV AMPLIFICATION NEGATIVE (NEGATIVE)
== END ==
LOC: M EMP 10:00
PROVIDERS: ATTEND Family Medicine
DX: Z11.52 Encounter for screening for COVID-19 (principal); Z20.822 Contact with and (suspected) exposure to COVID-19

== ENCOUNTER → 2021-10-23 | Outpatient (REF) ==
[2021-10-23 15:48] LABS: RSV AMPLIFICATION NEGATIVE (NEGATIVE)
== END ==
LOC: M LABSMTC 11:33
PROVIDERS: ATTEND Family Medicine
DX: Z11.52 Encounter for screening for COVID-19 (principal); Z20.822 Contact with and (suspected) exposure to COVID-19

== ENCOUNTER → 2022-06-05 | Outpatient (REF) | payer BC ==
[~2022-06-05] MED LIST changes: -LISI10TA15; +LISI10TA24
== END ==
LOC: M SFHCCLAY 16:38
PROVIDERS: ATTEND Family Medicine
DX: J02.9 Acute pharyngitis, unspecified (principal)

== ENCOUNTER → 2023-08-27 | Outpatient (REF) | payer BC ==
[2023-08-27 19:28] LABS: RSV AMPLIFICATION NEGATIVE (NEGATIVE)
== END ==
LOC: M SFHCCLAY 11:39
PROVIDERS: ATTEND Physician Assistant
DX: R09.81 Nasal congestion (principal)

== ENCOUNTER → 2024-10-07 | Outpatient (REF) | payer BC ==
[2024-10-07 17:43] LABS: HEMATOCRIT 45.9 % (36.0-47.0); HEMOGLOBIN 14.6 g/dl (12.0-15.5); MEAN CORPUSCULAR HEMOGLOBIN 29.1 pg (27.0-33.0); MEAN CORPUSCULAR HGB CONC 31.8 g/dl (32.0-36.5); MEAN CORPUSCULAR VOLUME 91.6 fl (80.0-96.0); PLATELET COUNT, AUTOMATED 309 10^3/uL (150-450); RED BLOOD COUNT 5.01 10^6/uL (4.00-5.40); WHITE BLOOD COUNT 6.7 10^3/uL (4.0-10.0)
[2024-10-07 17:45] LABS: ALBUMIN 3.9 G/DL (3.2-5.2); ALKALINE PHOSPHATASE 101 U/L (35-104); ALT/SGPT 50 U/L (7.0-40); AST/SGOT 34 U/L (<34); BILIRUBIN,TOTAL 0.4 MG/DL (0.3-1.2); BLOOD UREA NITROGEN 17 MG/DL (9-23); CALCIUM LEVEL 10.2 MG/DL (8.5-10.1); CARBON DIOXIDE LEVEL 32 MMOL/L (20-31); CHLORIDE LEVEL 104 MMOL/L (98-107); CHOLESTEROL LEVEL 256 MG/DL (<200); CHOLESTEROL RISK RATIO 4.48 (<5); GLOMERULAR FILTRATION RATE > 60.0 (>51); GLUCOSE, FASTING 88 MG/DL (60-100); HDL CHOLESTEROL 57.1 MG/DL (>40); LDL CHOLESTEROL 166.5 MG/DL (<100); NON-HDL-C 198.9 MG/DL; POTASSIUM SERUM 4.5 MMOL/L (3.5-5.1); SODIUM LEVEL 142 MMOL/L (136-145); TOTAL PROTEIN 7.6 G/DL (5.7-8.2); TRIGLYCERIDES LEVEL 162 MG/DL (<150)
[2024-10-07 17:47] LABS: FREE T4 1.19 NG/DL (0.89-1.76); THYROID STIMULATING HORMONE 2.423 uIU/ML (0.55-4.78)
[2024-10-07 19:15] LABS: HEMOGLOBIN A1c 5.4 % (4.0-6.0)
== END ==
LOC: M SFHCADAM 11:08
PROVIDERS: ATTEND Family Medicine
DX: E78.5 Hyperlipidemia, unspecified (principal); Z68.36 Body mass index [BMI] 36.0-36.9, adult; Z13.1 Encounter for screening for diabetes mellitus; K76.0 Fatty (change of) liver, not elsewhere classified; I77.810 Thoracic aortic ectasia